=== PATIENT | male | born 1970 | race Caucasian/White ===

== ENCOUNTER 2018-05-30 10:31 | Outpatient (CLI) | payer BC, SELFPAY ==
--- NOTE | 2018-05-30 10:11 | DI.RAD_ITS ---
SYMPTOMS/DIAGNOSIS: DORSALGIA, M54.9 LUMBAR SPINE: The vertebral bodies are intact. There is no evidence of gross disc space narrowing. Moderate endplate degenerative changes and spurring are noted at L 2 - 3 and L 3 - 4. The pedicles, spinous and transverse processes are intact. There are mild facet joint degenerative changes and no evidence of spondylolysis or spondylolisthesis. The sacrum and sacroiliac joints are intact. SUMMARY: Degenerative changes involving the lumbar spine as described above.
[2018-05-30 11:13] LABS: Abs Immature Grans 0.01 k/cumm (0.0-0.09); Absolute Basophil Count 0.04 k/cumm (0.0-0.2); Absolute Eosinophil Count 0.09 k/cumm (0.0-0.7); Absolute Lymphocyte Count 1.94 k/cumm (1.2-3.4); Absolute Monocyte Count 0.51 k/cumm (0.11-0.7); Absolute Neutrophil Count 4.54 k/cumm (1.2-6.7); Basophils % 0.6; Eosinophils % 1.3; HCT 42.6 % (40.0-50.0); HGB 14.8 g/dL (13.5-17.5); Immature Grans % 0.1; Lymphocytes % 27.2; Mean Corp. HGB Concentration 34.7 g/dL (32.0-36.0); Mean Corpuscular Hemoglobin 28.7 pg (27.0-33.0); Mean Corpuscular Volume 82.6 fL (80-95); Mean Platelet Volume 9.5 fL (8.0-11.0); Monocytes % 7.2; Neutrophils % 63.6; Platelet Count 288 x1000/uL (130-400); RBC 5.16 m/cumm (4.50-6.00); RBC Distribution Width 13.2 % (11.8-14.1); White Blood Cell Count 7.13 k/cumm (4.4-10.8)
[2018-05-30 12:55] LABS: ALT 41 U/L (12-78); AST 19 U/L (15-37); Alkaline Phosphatase 79 U/L (46-116); Anion Gap 9.6 mmol/L (3-11); BUN 12 mg/dL (7-18); Bilirubin, Total 0.5 mg/dL (0.2-1.0); CO2 26.4 mmol/L (21.0-32.0); Calcium 9.2 mg/dL (8.5-10.1); Chloride 103 mmol/L (98-107); Glucose 117 mg/dL (70-100); Potassium 4.3 mmol/L (3.5-5.1); Sodium 139 mmol/L (136-145); TSH (W/Ref FT4) 1.43 uIU/mL (0.358-3.74); Total Protein 7.2 g/dL (6.4-8.2)
== END 2018-05-30 10:51 ==
PROVIDERS: PCP Internal Medicine; Visit Provider Internal Medicine
DX: M54.5 Low back pain (principal); M47.816 Spondylosis without myelopathy or radiculopathy, lumbar region
CPT/HCPCS: 36415; 80053; 72110; 84443; 85025

== ENCOUNTER 2018-12-17 09:41 | Outpatient (CLI) | payer BC, SELFPAY | END 2018-12-17 10:01 | PROVIDERS: PCP Internal Medicine; Visit Provider Internal Medicine | DX: R73.09 Other abnormal glucose (principal) | CPT/HCPCS: 36415; 83036 ==

== ENCOUNTER 2020-10-30 02:38 | Outpatient (CLI) | payer BC, SELFPAY ==
[2020-10-31 14:21] LABS: COVID-19 RT-PCR UVMMC Result Negative (Negative)
== END 2020-10-30 02:39 | disposition home or self-care (01) ==
LOC: LBO 02:38
PROVIDERS: PCP Nurse Practitioner; Visit Provider Nurse Practitioner
DX: Z20.822 Contact with and (suspected) exposure to COVID-19 (principal)
CPT/HCPCS: U0003

== ENCOUNTER 2021-09-22 01:51 | Outpatient (CLI) | payer BC, SELFPAY ==
[2021-09-22 16:39] LABS: HCT 46.7 % (40.0-50.0); HGB 15.3 g/dL (13.5-17.5); MCH 27.9 pg (27.0-33.0); MCHC 32.8 % (32.0-36.0); MCV 85.1 fL (80-95); MPV 9.1 fL (8.0-11.0); Platelet Count 324 10^3/uL (130-400); RBC 5.49 10^6/uL (4.36-5.78); RDW 12.8 % (11.8-14.1); RDW-SD 39.8 fL
[2021-09-22 17:00] LABS: Hemoglobin A1C 7.1 % (<5.7)
[2021-09-22 17:58] LABS: ALT 63 U/L (16-63); AST 27 U/L (15-37); Albumin 4.4 g/dL (3.4-5.0); Alkaline Phosphatase 84 U/L (46-116); Anion Gap 11.7 mmol/L (3-11); BUN 11 mg/dL (7-18); Bilirubin, Total 0.6 mg/dL (0.2-1.0); CO2 26.3 mmol/L (21.0-32.0); CREATININE 0.9 mg/dL (0.70-1.30); Calcium 9.6 mg/dL (8.5-10.1); Calculated LDL 202 mg/dL (<100); Chloride 100 mmol/L (98-107); Cholesterol 272 mg/dL (<200); Glucose 135 mg/dL (74-106); HDL Cholesterol 39 mg/dL (40-60); Potassium 4.2 mmol/L (3.5-5.1); Sodium 138 mmol/L (136-145); TSH 1.45 uIU/mL (0.36-3.74); Total Protein 7.7 g/dL (6.4-8.2); Triglyceride 157 mg/dL (<150); Vitamin B12 541 pg/mL (193-986)
== END 2021-09-22 01:52 | disposition home or self-care (01) ==
LOC: LBO 01:51
PROVIDERS: PCP Nurse Practitioner; Visit Provider Nurse Practitioner
DX: E78.5 Hyperlipidemia, unspecified (principal); R73.03 Prediabetes; F41.8 Other specified anxiety disorders; R41.3 Other amnesia
CPT/HCPCS: 36415; 80053; 80061; 85027; 82607; 83036; 84443

== ENCOUNTER 2022-01-14 01:10 | Outpatient (CLI) | payer BC, SELFPAY ==
[2022-01-14 13:10] LABS: Hemoglobin A1C 6.6 % (<5.7)
[2022-01-14 13:27] LABS: Calculated LDL 210 mg/dL (<100); Cholesterol 283 mg/dL (<200); HDL Cholesterol 38 mg/dL (40-60); Triglyceride 175 mg/dL (<150)
== END 2022-01-14 01:11 | disposition home or self-care (01) ==
LOC: LOS 01:10
PROVIDERS: PCP Nurse Practitioner; Visit Provider Nurse Practitioner
DX: E78.5 Hyperlipidemia, unspecified (principal); E11.9 Type 2 diabetes mellitus without complications
CPT/HCPCS: 36415; 80061; 83036

== ENCOUNTER 2022-08-22 03:20 | Outpatient (CLI) | payer BC, SELFPAY ==
[2022-08-22 14:04] LABS: Calculated LDL 228 mg/dL (<100); Cholesterol 329 mg/dL (<200); HDL Cholesterol 42 mg/dL (40-60); Triglyceride 298 mg/dL (<150)
== END 2022-08-22 03:21 | disposition home or self-care (01) ==
LOC: LOS 03:20
PROVIDERS: PCP Nurse Practitioner Family; Visit Provider Family Medicine
DX: E78.5 Hyperlipidemia, unspecified (principal)
CPT/HCPCS: 36415; 80061

== ENCOUNTER 2023-01-02 17:22 | Outpatient (REF) | payer BC, SELFPAY ==
[2023-01-03 11:45] LABS: Hemoglobin A1C 6.4 % (<5.7)
== END 2023-01-02 17:23 | disposition home or self-care (01) ==
LOC: LBN 17:22
PROVIDERS: PCP Nurse Practitioner Family; Visit Provider Nurse Practitioner Family
DX: E11.9 Type 2 diabetes mellitus without complications (principal); I10 Essential (primary) hypertension; E78.5 Hyperlipidemia, unspecified
CPT/HCPCS: 83036

== ENCOUNTER 2023-09-22 17:37 | Outpatient (CLI) | payer BC, SELFPAY ==
[2023-09-22 15:22] LABS: HCT 44.5 % (40.0-50.0); HGB 15.2 g/dL (13.5-17.5); MCH 28.4 pg (27.0-33.0); MCHC 34.2 % (32.0-36.0); MCV 83 fL (80-95); MPV 8.8 fL (8.0-11.0); Platelet Count 311 10^3/uL (130-400); RBC 5.36 10^6/uL (4.36-5.78); RDW 12.7 % (11.8-14.1); RDW-SD 38.4 fL; WBC 8.98 10^3/uL (4.4-10.8)
[2023-09-22 16:34] LABS: ALT 94 U/L (16-63); AST 37 U/L (15-37); Albumin 4.1 g/dL (3.4-5.0); Alkaline Phosphatase 96 U/L (46-116); Anion Gap 8.8 mmol/L (3-11); BUN 24 mg/dL (7-18); Bilirubin, Total 0.4 mg/dL (0.2-1.0); CO2 28.2 mmol/L (21.0-32.0); Calcium 9.7 mg/dL (8.5-10.1); Chloride 99 mmol/L (98-107); Cholesterol 336 mg/dL (<200); Estimated GFR 89.44 (mL/min/1.73m2); Glucose 201 mg/dL (74-106); HDL Cholesterol 34 mg/dL (40-60); Potassium 3.9 mmol/L (3.5-5.1); Sodium 136 mmol/L (136-145); Total Protein 8.1 g/dL (6.4-8.2); Triglyceride 619 mg/dL (<150)
[2023-09-22 16:47] LABS: Hemoglobin A1C 6.2 % (<5.7)
[2023-09-22 16:51] LABS: LDL CHOLESTEROL 205 mg/dL (<100)
== END 2023-09-22 17:38 | disposition home or self-care (01) ==
LOC: LBO 17:37
PROVIDERS: PCP Nurse Practitioner Family; Visit Provider Nurse Practitioner Family
DX: Z00.00 Encounter for general adult medical examination without abnormal findings (principal); E78.5 Hyperlipidemia, unspecified; I10 Essential (primary) hypertension; E11.9 Type 2 diabetes mellitus without complications; F41.9 Anxiety disorder, unspecified
CPT/HCPCS: 36415; 80053; 80061; 83721; 85027; 83036

== ENCOUNTER → 2023-10-10 01:30 | Outpatient (CLI) | payer BC, SELFPAY ==
--- NOTE | 2023-10-10 05:00 | ETT_ITS ---
APPROVED REPORT Exam: Exercise Treadmill Patient Location: Out-Patient Room/Bed: Stress Nurse: Hang Guzmán RN Ordering Provider:KAIA ALBERTS, Contact Number: [phone] BMI: 0.22 Baseline Rhythm: Sinus Rhythm Indications: Chest pain, Medical History Medical History: Anxiety, , HTN, Hyperlipidemia, Diabetic ??? Noninsulin Allergies: No known drug allergies Cardiac Risk Factors: HTN, Diabetes (non-insulin) Pretest Chest Pain Characteristics: No chest pain Exercise History: Physically active Lung Sounds: Clear to auscultation Heart Sounds: Regular Stress Test Details Test: Exercise stress testing was performed using a Fitz protocol. Rest Stress HR Resting HR Supine: 68 bpm Max Heart Rate (APMHR): 166 bpm Resting HR Standin bpm Target HR (85% APMHR): 141 bpm Max HR Achieved: 171 bpm % of APMHR: 103 Recovery HR: 83 bpm HR response to stress: Normal HR response to stress BP Resting BP Supine: 118/72 mmHg Resting BP Standin/72 mmHg Max BP: 178/68 mmHg Recovery BP: 128/84 mmHg BP response to stress: Normal blood pressure response to stress. ECG Resting ECG: Sinus Rhythm Ectopy: none Stress ECG: Sinus Tachycardia ST Change: No significant ST segment changes noted Arrhythmia: VPC's, APC's Comment: Rare PVC, occasional PAC. Recovery ECG: Sinus Rhythm Recovery ST Change: No significant ST segment changes noted Recovery Arrhythmia: APC Comment: Rare PAC. Clinical Reason for Termination: Target HR Achieved Exercise duration: 7 min11 sec Highest Stage Reached: 3 Exercise capacity: 8.82 METs Angina Score: None Watson Treadmill Score: 6.6 Rate Pressure Product: [id number] Stress ECG Conclusion 1. Resting electrocardiogram was normal 2. Patient exercised on the Fitz protocol and completed a workload of 8.82 METS 3. Normal heart rate and blood pressure with exercise. The patient achieved greater than 100% of pre dicted heart rate for age 4. There was no electrocardiographic evidence of myocardial ischemia 5. There were no significant dysrhythmias Watson Treadmill Score is 6.6 which is Low risk. Stress Test Summary STAGE Time (mins) Speed (mph) Grade (%) HR BP SpO2 SYMPTOMS METS Supine 68 118/72 98 Standing 73 118/72 1 3 1.7 10 104 130/82 98 4.5 2 6 2.5 12 140 98 7 1 min recovery 158 138/82 98 3 min recovery 94 178/68 6 min recovery 83 128/74 97
== END ==
PROVIDERS: PCP Nurse Practitioner Family; Visit Provider Nurse Practitioner Family
DX: R07.9 Chest pain, unspecified (principal); E78.5 Hyperlipidemia, unspecified
CPT/HCPCS: 93017

== ENCOUNTER 2023-11-12 13:21 | Emergency (ER) | payer BC, SELFPAY ==
[2023-11-12 13:29] VITALS: BP 128/80; PULSE 59; RESP 14; TEMP 36.7; O2SAT 97
--- NOTE | 2023-11-12 14:15 | DI.RAD_ITS ---
Exam(s) XR KNEE LT 3V AP,LAT,ROMULO EXAM: XR KNEE LT 3V AP,LAT,ROMULO CLINICAL HISTORY: left knee pain. TECHNIQUE: 2D digital imaging was performed of the left knee. Three images were obtained. AP, late ral and PA tunnel views were obtained. COMPARISON: CR LEFT KNEE 4+ VIEWS from 11/19/2013 FINDINGS: BONES: No acute fracture is present. No bony destructive lesion is seen. Findings of a prior ACL rep air. There is a small enthesophyte at the anterior superior patella. JOINTS: The knee is normally aligned. There is a small joint effusion. No loose body. SOFT TISSUE: Normal. IMPRESSION: Small joint effusion. DATA REPOSITORY: RADIATION DOSE DELIVERED:
--- NOTE | 2023-11-12 15:41 | DI.VRAD_ITS ---
PROCEDURE INFORMATION: Exam: XR Left Knee Exam date and time: 11/12/2023 2:38 PM Age: 53 years old Clinical indication: Pain; Knee; Left; Prior surgery; Surgery date: 6+ months; Surgery type: Acl TECHNIQUE: Imaging protocol: Radiologic exam of the left knee. Views: 3 views. COMPARISON: No relevant prior studies available. FINDINGS: Bones/joints: No acute fracture or dislocation. Prior ACL repair. Small joint effusion. Soft tissues: Mild quadriceps enthesopathy. IMPRESSION: Small joint effusion with no acute osseous abnormality. Dictated and Authenticated by: Albert Rodriguez MD. Ordering:KESHIA Dixon MD
--- NOTE | 2023-11-12 15:56 | NUR.NOTE ---
Referral given to Care Managers to help Pt get an appointment with the [facility] sometime next week for Knee Effusion.
--- NOTE | 2023-11-12 16:04 | W.EDPROG ---
Medical Decision Making Quality:SDOH Health Related Social Needs: No Data to Display Discharge Plan Disposition Patient Disposition: Home Discharge Details Clinical Impression: Effusion of left knee Primary Care Provider: Digna Mortensen ED Provider: Destiny Cummings Home Meds and New Rx's Prescriptions: Continued fluoxetine 20 mg capsule 20 mg PO DAILY Qty: 30 0RF Rx Instructions: take 1 tab for two weeks, then one tab every other day for two weeks then stop losartan 50 mg tablet 50 mg PO DAILY Qty: 90 3RF sildenafil 50 mg tablet See Rx Instructions .ROUTE .COMPLEX Qty: 30 3RF Dose Instruction: TAKE 1 TABLET DAILY NEEDED FOR SEXUAL ACTIVITY. ADMINISTER 30 MINUTES TO 4 HOURS BEFORE ACTIVITY. Rx Instructions: TAKE 1 TABLET DAILY NEEDED FOR SEXUAL ACTIVITY. ADMINISTER 30 MINUTES TO 4 HOURS BEFORE ACTIVITY. Discharge Instructions Additional Instructions: diclofenac gel tylenol as needed for pain keep splint in place crutches as needed follow-up with [facility] tomorrow return earlier with fever, redness, or with any new or worsening
--- NOTE | 2023-11-13 17:39 | ED.GENADUL_ITS ---
Discharge Plan Disposition Patient Disposition: Home Discharge Details Clinical Impression: Effusion of left knee Primary Care Provider: Dgina Mortensen ED Provider: Destiny Cummings Home Meds and New Rx's Prescriptions: Continued fluoxetine 20 mg capsule 20 mg PO DAILY Qty: 30 0RF Rx Instructions: take 1 tab for two weeks, then one tab every other day for two weeks then stop losartan 50 mg tablet 50 mg PO DAILY Qty: 90 3RF sildenafil 50 mg tablet See Rx Instructions .ROUTE .COMPLEX Qty: 30 3RF Dose Instruction: TAKE 1 TABLET DAILY NEEDED FOR SEXUAL ACTIVITY. ADMINISTER 30 MINUTES TO 4 HOURS BEFORE ACTIVITY. Rx Instructions: TAKE 1 TABLET DAILY NEEDED FOR SEXUAL ACTIVITY. ADMINISTER 30 MINUTES TO 4 HOURS BEFORE ACTIVITY. Discharge Instructions Additional Instructions: diclofenac gel tylenol as needed for pain keep splint in place crutches as needed follow-up with [facility] tomorrow return earlier with fever, redness, or with any new or worsening Discharge Data Discharge Date/Time-TO BE ENTERED AT DEPARTURE: 11/12/23 16:26 HPI General Date/Time Provider Initiated Documentation: 11/12/23 14:07 . HPI Narrative: This 53-year-old male presents with left knee pain for the past week. Denies any known injuries, prior ACL repair 6 years ago at [facility] in [place]. Did some yard work yesterday and the pain got dramatically worse. Now has had persistent pain throughout the day. Denies any calf pain or swelling. Has some swelling to the anterior portion of his knee. States is worse with extension. Denies any additional complaints at this time. Related Data Home Medications Medication Instructions Recorded Confirmed losartan 50 mg tablet 50 mg PO DAILY #90 tabs 02/27/23 11/12/23 sildenafil 50 mg tablet See Rx Instructions .Route 07/10/23 11/12/23 .COMPLEX #30 tabs fluoxetine 20 mg capsule 20 mg PO DAILY #30 caps 09/25/23 11/12/23 Previous Rx's Medication Instructions Recorded losartan 50 mg tablet 50 mg PO DAILY #90 tabs 02/27/23 sildenafil 50 mg tablet See Rx Instructions .Route 07/10/23 .COMPLEX #30 tabs fluoxetine 20 mg capsule 20 mg PO DAILY #30 caps 09/25/23 Allergies Allergy/AdvReac Type Severity Reaction Status Date / Time No Known Allergies Allergy Unverified 11/12/23 13:35 General Stated Complaint: Orthopedic RAISSA: 4 Course Vital Signs Vital signs: Vital Signs Temperature 36.7 C 11/12/23 13:29 Pulse 59 L 11/12/23 13:29 Respiratory Rate 14 11/12/23 13:29 Blood Pressure 128/80 11/12/23 13:29 Pulse Oximetry 97 11/12/23 13:29 Temperature 36.7 C 11/12/23 13:29 Temperature Source Skin 11/12/23 13:29 Pulse 59 L 11/12/23 13:29 Respiratory Rate 14 11/12/23 13:29 Respiratory Effort Normal 11/12/23 13:48 Blood Pressure 128/80 11/12/23 13:29 Blood Pressure Position Supine 11/12/23 13:29 Pulse Oximetry 97 11/12/23 13:29 Oxygen Delivery Method Room Air 11/12/23 13:29 Oxygen Flow Rate 0 11/12/23 13:29 Pain Level 4 11/12/23 13:48 Comment denies home tx or otc medications 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 Return precautions reviewed and patient expressed understanding, referred back to [facility] in [place] Quality:SDOH Health Related Social Needs: No Data to Display PFSH All Active Problems (Updated 11/12/23 @ 15:52 by AMBER Alegre) Effusion of left knee (Acute) Skin abnormalities (Acute) Hyperlipidemia (Acute) Hypnic jerks (Acute) Mild cognitive impairment (Acute) 01/02- seen by neuro; no focal deficits, believed to be r/t stress Hypertension (Chronic) Diabetes (Chronic) Erectile dysfunction (Acute) Anxiety (Chronic) Memory change (Acute) Medical History (Updated 11/12/23 @ 15:52 by AMBER Alegre) Premature beats PAC's per holter 08/20 Family History Mother , age 67 Crohn's disease Father , age 67 Heart disease Multiple myeloma Sister No problems noted. Sister No problems noted. Sister No problems noted. Brother No problems noted. Brother No problems noted. Son No problems noted. Daughter No problems noted. Daughter No problems noted. Maternal Grandfather No problems noted. Paternal Grandfather No problems noted. Maternal Grandmother No problems noted. Paternal Grandmother No problems noted. Social History (Updated 09/26/22 @ 17:27 by Julianna Greene) Smoking/Tobacco Use Status: Former Tobacco Use tobacco type: cigarettes and smokeless tobacco Tobacco: How many years used: 20 Smokeless tobacco user: chewing tobacco Second Hand Exposure: Yes Smoking risk assessment performed?: Yes Alcohol Intake: former Drug use: Current Sobriety Substance use type: does not use Caregiver/Support person: No Household members: spouse Housing: house Communication Needs: None Do you need help understanding health information?: Never Pets and animals: Yes Pets and animals: cat(s) and dog(s) Sexually active: Yes Do you think of yourself as: straight/heterosexual Current gender identity: male What is your relationship status?: How often do you talk on the phone with friends or family?: three or more times per week How often do you get together with friends or relatives?: three or more times per week How often do you attend buddhism or hoahaoism services?: 4 or more times per year Do you belong to any clubs or organized social groups?: no Panel score (0-1 are the most socially isolated patients): 3 What type of physical activity do you participate in: regular exercise Duration: 45-60 minutes/day Frequency: 5-6 times per week Kathy/Yarsani: Other Special kathy needs: No Seatbelt use: always Helmet use: Yes Helmet use: always 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
== END 2023-11-12 16:26 | disposition home or self-care (01) ==
PROVIDERS: Emergency Provider Physician Assistant; PCP Nurse Practitioner Family
DX: M25.462 Effusion, left knee (principal)
CPT/HCPCS: 73562; 99283

== ENCOUNTER 2024-01-29 06:52 | Day surgery (SDC) | payer BC, SELFPAY ==
--- NOTE | 2024-01-29 07:03 | ANES.PREOP_ITS ---
General Info Date of Service Date Performed: 01/29/24 Height: 5 ft 10 in Weight: 102 kg Body Mass Index (BMI): 32.2 Surgical Procedure: Operation Date: 01/29/24 08:05 Proposed Procedure Side Surgeon p Jack Linton MD Meds Allergies and Home Medications Allergies Allergy/AdvReac Type Severity Reaction Status Date / Time No Known Allergies Allergy Verified 01/29/24 07:17 Home Medication Medication Instructions Recorded losartan 50 mg tablet 50 mg PO DAILY #90 tabs 02/27/23 bisacodyl 5 mg tablet,delayed 5 mg PO ONCE #4 tabs 01/11/24 release (Dulcolax (bisacodyl)) polyethylene glycol 3350 17 17 g PO ONCE #238 grams 01/11/24 gram/dose oral powder Current Visit Medications: Current Medications Generic Name Dose Route Start Last Admin Trade Name Freq PRN Reason Stop Dose Admin Ringer's Solution 1,000 mls @ 80 mls/hr 01/29/24 06:00 IV 02/25/24 23:59 INFUSION BLAKE IV Miscellaneous Supplies 1 each 01/29/24 06:00 Iv Access IV 02/25/24 23:59 DIRECTED BLAKE Sodium Chloride 0 ml 01/29/24 06:00 Normal Saline Flush 10 Ml Syr IV 02/25/24 23:59 PRN PRN Sodium Chloride 0 ml 01/29/24 06:00 Normal Saline 10 Ml Vial IJ 02/25/24 23:59 DIRECTED PRN Sterile Water 0 ml 01/29/24 06:00 Water,Injection,Sterile 10 Ml Vial IJ 02/25/24 23:59 DIRECTED PRN PFSH Active Problems Active Problems: Problem Status Onset Code Skin abnormalities L98.9 Hyperlipidemia E78.5 Hypnic jerks F51.8 Mild cognitive impairment G31.84 Hypertension I10 Diabetes E11.9 Erectile dysfunction N52.9 Anxiety F41.9 Memory change R41.3 Medical History Medical History Premature beats PAC's per holter 08/20 Surgical History Surgical History History of repair of ACL L arm Hx of colonoscopy Tobacco Smoking/Tobacco Use Status: Former Tobacco Use Smokeless tobacco user: chewing tobacco Passive smoking exposure: No Second hand exposure: Yes Alcohol Alcohol Intake: former Substance Use Substance use: Current Sobriety Substance use type: does not use Vital Signs and Lab Results Vital Signs Most Recent Vital Signs in EMR: Temp Pulse Resp BP Pulse Ox 36.5 C 69 18 138/88 97 01/29/24 07:20 01/29/24 07:20 01/29/24 07:20 01/29/24 07:20 01/29/24 07:20 Lab Results Blood Type / Crossmatch: No Data to Display Complete Blood Count: No Data to Display Complete Metabolic Panel: No Data to Display Liver Function Panel: No Data to Display Coagulation Panel: No Data to Display Cardiac Panel: No Data to Display Arterial Blood Gas: No Data to Display Venous Blood Gas: No Data to Display Pancreas Panel: No Data to Display Thyroid Panel: No Data to Display Infectious Disease: No Data to Display Blood Cultures: No Data to Display Toxicology Panel: 2 No Data to Display Imaging and Studies Imaging and Studies Study information below may be from another EMR and interpreted by another provider. Please see original notes in EMR for more complete details. Stress Test Summary: STRESS TEST PATIENT NAME: Tahir Quiñonez UNIT #: [id number] ORDERING PROVIDER: Digna Alberts NP PRIMARY CARE PROVIDER: DIGNA ALBERTS NP DATE/TIME OF SERVICE: 10/10/23 ADMITTING PROVIDER: TIMOTHY GODOY MD : 1970 APPROVED REPORT Exam: Exercise Treadmill Patient Location: Out-Patient Room/Bed: Stress Nurse: Hang Guzmán RN Ordering Provider:DIGNA ALBERTS, Contact Number: [phone] BMI: 0.22 Baseline Rhythm: Sinus Rhythm Indications: Chest pain, Medical History Medical History: Anxiety, , HTN, Hyperlipidemia, Diabetic ??? Noninsulin Allergies: No known drug allergies Cardiac Risk Factors: HTN, Diabetes (non-insulin) Pretest Chest Pain Characteristics: No chest pain Exercise History: Physically active Lung Sounds: Clear to auscultation Heart Sounds: Regular Stress Test Details Test: Exercise stress testing was performed using a Fitz protocol. Rest Stress HR Resting HR Supine: 68 bpmMax Heart Rate (APMHR): 166 bpm Resting HR Standin bpmTarget HR (85% APMHR): 141 bpm Max HR Achieved: 171 bpm % of APMHR: 103 Recovery HR: 83 bpm HR response to stress: Normal HR response to stress BP Resting BP Supine: 118/72 mmHg Resting BP Standin/72 mmHg Max BP: 178/68 mmHg Recovery BP: 128/84 mmHg BP response to stress: Normal blood pressure response to stress. ECG Resting ECG: Sinus Rhythm Ectopy: none Stress ECG: Sinus Tachycardia ST Change: No significant ST segment changes noted Arrhythmia: VPC's, APC's Comment: Rare PVC, occasional PAC. Recovery ECG: Sinus Rhythm Recovery ST Change: No significant ST segment changes noted Recovery Arrhythmia: APC Comment: Rare PAC. Clinical Reason for Termination: Target HR Achieved Exercise duration: 7 min11 sec Highest Stage Reached: 3 Exercise capacity: 8.82 METs Angina Score: None Watson Treadmill Score: 6.6 Rate Pressure Product: [id number] Stress ECG Conclusion 1. Resting electrocardiogram was normal 2. Patient exercised on the Fitz protocol and completed a workload of 8.82 METS 3. Normal heart rate and blood pressure with exercise. The patient achieved greater than 100% of predicted heart rate for age 4. There was no electrocardiographic evidence of myocardial ischemia 5. There were no significant dysrhythmias Watson Treadmill Score is 6.6 which is Low risk. Stress Test Summary STAGETime (mins)Speed (mph)Grade (%)[id number] Dnzssxwd45989/72 [id number]/[id number] 1 min [id number] 3 min [id number]/68 6 min [id number] Dictated by: TIMOTHY GODOY MD Dictated:: 10/10/23 0854 <Electronically signed by Timothy Godoy M.D. in OV> 10/10/23 0859 Transcribed Date: 10/10/23 Transcribed Time: 08 By: CINDI This is privileged, confidential information, intended only for the provider named. Any use or distribution by any person other than this provider is strictly prohibited. If you receive this report in error, please notify us immediately at [phone] and return the original report to us at the address above. Thank you. Echocardiogram Summary: Patient Name: Tahir Quiñonez Unit #: [id number] Loc: DI Ordering Provider: Digna Alberts SECURITY INVESTIGATOR Status: REG CLI Primary Care Provider: Digna Alberts NP Date of Exam: 10/19/23 Sex: M Admission Date: 10/19/23 : 1970 Age: 53 APPROVED REPORT EXAM: Comprehensive 2D, Doppler, and color-flow Echocardiogram Patient Location: Out-Patient [employer] Supervisor: Tong Snyder RDCS (AE) Conclusion Normal left ventricular wall thickness and chamber size. Ejection fraction is 60-65% Wall motion is normal Normal right ventricular size and function Both atria are normal in size There is no structural or hemodynamically significant valvular disease Estimated right ventricular systolic pressure is 35 mmHg Wall motion Left Ventricle The left ventricle is normal size. The left ventricular systolic function is normal. The left ventricular ejection fraction is within the normal range. There is normal left ventricular wall thickness. There is normal LV segmental wall motion. There is no ventricular septal defect visualized. LVEF is 60-65%. Right Ventricle The right ventricle is normal size. The right ventricular systolic function is normal. Atria The left atrium size is normal. The right atrium size is normal. The interatrial septum is intact with no evidence for an atrial septal defect. Aortic Valve The aortic valve is normal in structure. Aortic valve is trileaflet. There is no aortic valvular stenosis. No aortic regurgitation is present. Mitral Valve The mitral valve is normal in structure. No evidence of mitral valve stenosis. Trivial mitral valve regurgitation noted. Tricuspid Valve The tricuspid valve is normal in structure. There is no tricuspid valve stenosis. Mild tricuspid regurgitation. The RVSP is 35.0 mmHg. Pulmonic Valve The pulmonary valve is normal in structure. There is no pulmonic valvular stenosis. Mild pulmonic regurgitation. Great Vessels The aortic root is normal in size. The ascending aorta is normal in size. Aortic arch is not well visualized. IVC is normal in size and collapses >50% with inspiration. Pericardium There is no pericardial effusion. 2D Dimensions IVSD d PLAX 0.52 cm M: 0.6-1.2Ao Root d 2.79 cm M: 3.1 - 3.7 LVPW d PLAX 0.53 cm M: 0.6 - 1.2Ao Asc Diam d 2.98 cm M: 2.6 - 3.4 LVID d PLAX 5.62 cm M: 4.2 - 5.8 LVDs 3.63 cm M: 2.5 - 4.0 LV EF Teichholz 64.1 % FS35.39 % LV EDV (Teich)155.2 mL LV ESV (Teich)55.7 mL Stroke Vol Index (Teich)45.67 M-Mode TAPSE 2.40 cm (M/F) >1.7 Auto EF LV EDV L4U704.9 mLLV EDV Y0B181.1 mLLV EDV BP122.0 mL LV ESV A4C53.2 mLLV ESV A2C41.2 mLLV ESV BP46.6 mL LVEF(%) A4C59.6 %LVEF(%) A2C63.3 %LVEF(%) BP61.8 % LV SV A4C78.7 mlLV SV A2C70.9 mlLV SV BP75.4 ml LV CO A4C4.7 L/minLV CO A2C4.2 L/minLV CO BP4.4 L/min HR A4C59.41 BPMHR A2C58.90 BPMLV EDV Index (BP) LA Volume LA Length A4C4.6 cmLA Length A2C4.7 cm LA Area A4C s 10.90 cm2LA Area A2C s 14.18 cm2 LA Vol A4C A-L22.12 mLLA Vol A2C A-L36.57 mLLA Vol Biplane A-L28.8 mL LA Vol/BSA A4C A-LLA Vol/BSA A2C A-LLA Vol/BSA BP A-L 13.2 mL/m2 LA Vol A4C MOD19.9 mLLA Vol A2C MOD34.7 mLLA Vol BP MOD26.4 mL RA Volume RA Area A4C6.5 cm2RA ESV A4C (A-L)10.3mLRA Vol/BSA A4C A-L RA Length A4C3.5 cmRA ESV A4C (MOD)10.5mL LV Diastology MV E' medial0.110 (>0.07 m/s)MV E Vmax 0.77 (0.4-1.3 m/s) MV E/E' MED6.98 (<14)MV A Vmax 0.55 (0.4-1.3 m/s) MV E' lateral0.092 (>0.1 m/s)E/A Ratio 1.4 MV E/E' LAT8.33 (<14) MV E' Average0.101 m/s MV E/E'(average)7.60 Aortic Valve AoV Vmax1.06 m/sLVOT Vmax 1.08 m/s AoV Peak Grad4.5 mmHgLVOT Peak Grad 4.7 mmHg AoV Area (Vmax)3.45 ps8AUGZ VTI0.218 m AoV VTI0.246 mLVOT Mean Grad 2.3 mmHg AoV Mean Jeremy.0.78 m/sLVOT SV 73.57 mL AoV Mean Grad2.7 mmHgLVOT Diam s 2.05 cm AoV Area (VTI)2.99 cm2 Velocity Ratio 1.02 Mitral Valve MV DT 135 (160-240 msec) Pulmonary Valve PV Vmax 0.74 (0.5-1.5 m/s)RVOT Vmax 0.49 m/s PV Peak Grad 2.2 mmHgRVOT Peak Gr.1.0 mmHg PV Mean Vel0.55 m/sRVOT VTI0.125 m PV Mean Grad 1.4 mmHgRVOT Mean Gr.0.5 mmHg Tricuspid Valve RA Pressure 3.00 mmHgTR Vmax 2.83 m/s TR Peak Grad 31.9 mmHg RVSP (TR) 35.0 mmHg Ordered By: Digna Alberts NP CC: Dictated By: Timothy Godoy M.D. 10/19/23 1013 <Electronically signed by Timothy Godoy M.D. in OV> 10/19/23 1026 Transcribed By: Timothy Godoy MD 10/19/23 1013 This is privileged, confidential information intended only for the provider named. Any use or distribution by any person other than this provider is strictly prohibited. If you receive this report in error, please notify us immediately at [phone] and return the original report to us at the address above. Thank-you. Anesthesia Assessment and Plan Anesthesia History Personal History: No History of Anesthesia Complications Family History: No Family History of Anesthesia Complications Exercise Tolerance Exercise Tolerance: Metabolic Equivalents>4 Pertinent Negatives Pertinent Negatives: No Symptoms of GERD, No Major Cardiovascular Symptoms or Complaints, No Major Pulmonary Symptoms or Complaints and No History of CVA/TIA Cardiac & Pulmonary Exam Cardiac Exam: Normal S1/S2 Heart Sounds Pulmonary Exam: Clear Bilateral Breath Sounds Implantable Cardiac Device Does patient have a Pacemaker or an ICD?: No Airway Exam Known Difficult Airway: No Mallampati Class: 2 Mouth Opening: Normal (> 3cm) Thyromental Distance: Greater than 3 cm Neck Range of Motion: Full ROM Neck Circumference: Normal Teeth Condition: Normal Dentition ASA Classification ASA Score: ASA 2 Emergency Case?: No NPO Status NPO Status: NPO Clears >2 hours, Solids >8 hours Anesthesia Plan Resuscitation Status: Full Code Anesthesia Technique: General Anesthesia Airway Planned: Natural Airway Monitors Used: Standard Monitors
[2024-01-29 07:20] VITALS: BP 138/88; PULSE 69; RESP 18; TEMP 36.5; O2SAT 97
[2024-01-29] MEDS: Lactated Ringers 1,000 ML 80 ML IV (07:25)
--- NOTE | 2024-01-29 08:02 | W.COLOREPORT ---
Date of service: 01/29/24 Time of Service: 08:02 Colonoscopy Report Procedure Description: PROCEDURES PERFORMED: 1. Colonoscopy with cold forceps polypectomy PREOPERATIVE DIAGNOSIS: Surveillance colonoscopy POSTOPERATIVE DIAGNOSIS: Colon polyp sigmoid diverticulosis, SURGEON: Harvinder Linton MD INDICATION FOR PROCEDURE: the patient is a 53-year-old man with no family history of colon cancer. Prior colonoscopy was normal 10+ years ago. He is not having any symptoms. FINDINGS: Terminal ileum was normal. A small 2-3 mm sessile polyp was removed from the transverse colon. Scattered diverticuli are present in the sigmoid colon. No active inflammation. No significant hemorrhoid disease. SURVEILLANCE interval/FOLLOW-UP: 7-10 years as long as the polyp is not an advanced histology SPECIMENS: Yes EBL: Minimal COMPLICATIONS: None QUALITY of prep: Excellent Procedure in detail: The patient gave written consent and was in agreement with the indications, the potential risks as well as the benefits of the procedure. They were taken to the endoscopy suite and laid in the left lateral decubitus position. A timeout was performed and anesthesia was administered which was tolerated well. I started the procedure. Digital rectal and visual examination was performed and grossly within normal limits. A well-lubricated flexible colonoscope was then introduced and passed without any notable difficulty all the way to the cecum identified by the ileocecal valve and the appendiceal orifice. The terminal ileum was intubated and looked normal. The scope was then slowly withdrawn with the above-noted findings. The patient tolerated the procedure well and was taken to the PACU in hemodynamically stable condition.
--- NOTE | 2024-01-29 08:04 | W.PM.DSUDISC ---
Date of service: 01/29/24 Time of Service: 08:04 Discharge Plan Disposition Patient Disposition: Home Condition: Good Discharge Details Attending Provider: Elliott Linton Primary Care Provider: Digna Mortensen Home Meds and New Rx's Prescriptions: No Action bisacodyl [Dulcolax (bisacodyl)] 5 mg tablet,delayed release (DR/EC) 5 mg PO ONCE Qty: 4 0RF Rx Instructions: Take per colonoscopy instructions provided by ordering providers office polyethylene glycol 3350 17 gram/dose powder 17 g PO ONCE Qty: 238 0RF Rx Instructions: Take per colonoscopy instructions provided by ordering providers office losartan 50 mg tablet 50 mg PO DAILY Qty: 90 3RF Discharge Instructions Additional Instructions: FINDINGS: A small polyp was found and removed from your colon today. It is nothing to worry about. This is why we do the colonoscopies. Diverticular changes were found in your colon. This is extremely common, benign and nothing needs to be done about it. You should repeat another colonoscopy in 7 to 10 years. Stand Alone Forms: Anesthesia Discharge InstJohn, Arthur Moise (DSU) Activity:: Activity as Tolerated Diet:: As Tolerated
[2024-01-29 08:18] VITALS: BMI 32.2
--- NOTE | 2024-01-29 08:29 | BOWEL_PTH ---
PATIENT: Tahir Quiñonez LOC: PATY U#:[id number] AGE/SX: 53/M ROOM: RE01/29/[address]: Elliott Linton : 1970 BED: DIS: 01/29/2024 SPEC #: [id number] RECD: 01/29/24 12:49 STATUS: SALLIE SAMUELS #: [id number] LUIS FERNANDO: 01/29/24 08:[address]: Elliott Linton DEPT: Surgical Specimen RECD BY: Destiny Dalal ENTERED: 01/29/24 12:49 SP TYPE: Bowel OTHR DR: Digna Mortensen, GONZALEZ Tissues: 1 - BIOPSY BOWEL Procedures: GROSS AND MICRO LEVEL 4 Comments: [id number]
[2024-01-29 08:37] VITALS: BP 116/70; PULSE 60; RESP 18; TEMP 35.9; O2SAT 97
[2024-01-29 09:12] VITALS: BP 126/79; PULSE 61; RESP 16; TEMP 36.2; O2SAT 98
--- NOTE | 2024-01-29 12:57 | W.ANESPOSTOP ---
Postoperative Evaluation Date, Time and Location Date Performed: 01/29/24 Time Performed: 08:39 Patient Location: Day Surgery Unit Vital Signs Most Recent Imported Vital Signs: Most Recent Vital Signs Temp Pulse Resp BP Pulse Ox 36.2 C L 61 16 126/79 98 01/29/24 09:12 01/29/24 09:12 01/29/24 09:12 01/29/24 09:12 01/29/24 09:12 Pain Score Most Recent Pain Score: Most Recent Pain Score Pain Level 0 01/29/24 09:12 Assessment Mental Status: Awake (Alert & Oriented to Patient Baseline) Airway and Respiratory Function: Patent airway with normal (patient baseline) respiratory exam Cardiovascular Function: Hemodynamically Stable Hydration Status: Adequately Hydrated Nausea & Vomiting: No Nausea or Vomiting Pain: Pt. Denies Any Pain Peripheral Nerve Block: Patient did not receive a nerve block
== END 2024-01-29 09:16 | disposition home or self-care (01) ==
PROVIDERS: PCP Nurse Practitioner Family; Visit Provider Student in an Organized Health Care Education/Training Program
PROC: 0DJD8ZZ Inspection of Lower Intestinal Tract, Via Natural or Artificial Opening Endoscopic (ICD-10-PCS; CPT 45378; principal; 2024-01-29 08:00)
DX: Z12.11 Encounter for screening for malignant neoplasm of colon (principal); I10 Essential (primary) hypertension; D12.3 Benign neoplasm of transverse colon; K57.30 Diverticulosis of large intestine without perforation or abscess without bleeding
CPT/HCPCS: 45380; 00123; 88305; J2704

== ENCOUNTER 2024-04-29 04:26 | Outpatient (CLI) | payer BC, SELFPAY ==
[2024-04-29 15:53] LABS: Anion Gap 12.4 mmol/L (3-11); BUN 19 mg/dL (7-18); CO2 25.6 mmol/L (21.0-32.0); Calcium 9.9 mg/dL (8.5-10.1); Chloride 98 mmol/L (98-107); Cholesterol 333 mg/dL (<200); Estimated GFR 89.44 (mL/min/1.73m2); Glucose 246 mg/dL (74-106); HDL Cholesterol 35 mg/dL (40-60); Sodium 136 mmol/L (136-145); Triglyceride 588 mg/dL (<150)
[2024-04-29 16:13] LABS: LDL CHOLESTEROL 196 mg/dL (<100)
[2024-04-29 16:20] LABS: Hemoglobin A1C 10.8 % (<5.7)
== END 2024-04-29 04:27 | disposition home or self-care (01) ==
LOC: LBO 04:26
PROVIDERS: PCP Nurse Practitioner Family; Visit Provider Nurse Practitioner Family
DX: E78.5 Hyperlipidemia, unspecified (principal); E11.9 Type 2 diabetes mellitus without complications; I10 Essential (primary) hypertension
CPT/HCPCS: 36415; 80048; 80061; 83721; 83036

== ENCOUNTER 2024-05-06 14:48 | Emergency (ER) | payer BC, SELFPAY ==
[2024-05-06 14:51] VITALS: BP 161/102; PULSE 84; RESP 16; TEMP 36.6; O2SAT 98
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
[2024-05-06 15:25] LABS: Abs Immature Grans 0.02 10^3/uL (0.0-0.06); Absolute Basophil Count 0.05 10^3/uL (0.0-0.2); Absolute Eosinophil Count 0.12 10^3/uL (0.0-0.7); Absolute Lymphocyte Count 2.02 10^3/uL (1.2-3.4); Absolute Monocyte Count 0.53 10^3/uL (0.1-0.8); Absolute Neutrophil Count 6.22 10^3/uL (1.2-6.7); Basophils % 0.6 %; Eosinophils % 1.3 %; HCT 43.7 % (40.0-50.0); HGB 14.8 g/dL (13.5-17.5); Immature Grans % 0.2 %; Lymphocytes % 22.5 %; MCHC 33.9 % (32.0-36.0); MCV 83 fL (80-95); MPV 9.4 fL (8.0-11.0); Monocytes % 5.9 %; Neutrophils % 69.5 %; Platelet Count 315 10^3/uL (130-400); RBC 5.28 10^6/uL (4.36-5.78); RDW 12.4 % (11.8-14.1); RDW-SD 37.4 fL; WBC 8.96 10^3/uL (4.4-10.8)
[2024-05-06] MEDS: ACETAMINOPHEN 1,000 MG/100 ML BTL 400 MG IVPB (15:26)
[2024-05-06] MEDS: Methocarbamol 500 MG TAB 1000 MG PO (15:26)
[2024-05-06 15:49] LABS: ALT 66 U/L (16-63); AST 34 U/L (15-37); Albumin 3.8 g/dL (3.4-5.0); Alkaline Phosphatase 135 U/L (46-116); Anion Gap 11.5 mmol/L (3-11); BUN 13 mg/dL (7-18); Bilirubin, Total 0.33 mg/dL (0.2-1.0); CO2 26.5 mmol/L (21.0-32.0); Calcium 9.1 mg/dL (8.5-10.1); Chloride 97 mmol/L (98-107); Estimated GFR 89.44 (mL/min/1.73m2); Glucose 297 mg/dL (74-106); Sodium 135 mmol/L (136-145); Total Protein 7.5 g/dL (6.4-8.2)
[2024-05-06] MEDS: Normal Saline - Diluent 50 ML VIAL IJ (16:08)
[2024-05-06] MEDS: Omnipaque 350 MG/ML 100 ML BTL 85 ML IJ (16:09)
--- NOTE | 2024-05-06 16:18 | DI.CT_ITS ---
Exam(s) CT ABDOMEN PELVIS W EXAM: CT ABDOMEN PELVIS W CLINICAL HISTORY: abd pain. TECHNIQUE: Imaging Protocol: Axial computed tomography images with coronal and sagittal reformatted images were created and reviewed CONTRAST MATERIAL: Intravenous: Omnipaque-350 100cc Oral: None COMPARISON: No exams were available for comparison FINDINGS: VISUALIZED LUNG BASES: No nodules nor pleural effusions evident. ABDOMEN: There is no ascites. LIVER: There are no focal hepatic lesions evident. No dilated intrahepatic ducts. GALLBLADDER/BILIARY: No obvious gallbladder pathology. CBD is not dilated. PANCREAS: No evidence of pancreatic mass nor dilatation of the pancreatic duct. SPLEEN: Spleen is not enlarged. No obvious intrasplenic lesions. Splenic and portal veins are paten t. ADRENALS: There are no significant adrenal masses. KIDNEYS:There is a small benign 7 millimeter cortical cyst in the inferior aspect of the right kidney . Does not require further workup. No solid renal lesions. No calculi. No hydronephrosis nor hydr oureter. No abnormalities evident in the urinary bladder.. ABDOMINAL AORTA: Abdominal aorta is not enlarged. LYMPH NODES:There is no retroperitoneal nor paraaortic adenopathy. ABDOMINAL WALL: No evidence of significant anterior abdominal wall nor inguinal hernia. GI: There is no evidence of bowel obstruction, free air, nor abscess. PELVIS: GI: No evidence of appendicitis.There are sigmoid diverticuli but no evidence of acute diverticulitis . LYMPH NODES: There is no intrapelvic nor inguinal adenopathy. REPRODUCTIVE: Prostate size is normal. Seminal vesicles appear unremarkable. URINARY BLADDER: No calculi nor obvious masses evident OSSEOUS: No fractures and no significant osseous lesions. IMPRESSION: No significant findings on this contrast infused CT scan of the abdomen and pelvis. Report called by myself to ER physician 05/06/2024 at 4:36 p.m. RADIATION DOSE DELIVERED: 540.63mGy.cm Total DLP DATA REPOSITORY: All CT scans at this facility are submitted to the National Radiology Data Registry (NRDR) Dose Index Registry (DIR) with the [employer] (ACR). RADIATION OPTIMIZATION: All CT scans at this facility use at least one of these dose optimization te chniques: automated exposure control; mA and/or kV adjustment per patient size (includes targeted exa ms where dose is matched to clinical indication); or iterative reconstruction.
[2024-05-06 16:36] VITALS: BP 125/78; PULSE 71; RESP 18; TEMP 36.3; O2SAT 99
== END 2024-05-06 16:48 | disposition home or self-care (01) ==
PROVIDERS: Emergency Provider Emergency Medicine; PCP Nurse Practitioner Family
DX: M54.9 Dorsalgia, unspecified (principal); R73.9 Hyperglycemia, unspecified; V28.09XA Other motorcycle driver injured in noncollision transport accident in nontraffic accident, initial encounter
CPT/HCPCS: 36415; 80053; 96365; 99285; 74177; 85025; 99284; J0131; J3490

== ENCOUNTER 2024-08-01 08:58 | Outpatient (CLI) | payer BC, SELFPAY ==
[2024-08-01 13:04] LABS: Hemoglobin A1C 8.4 % (<5.7)
== END 2024-08-01 08:59 | disposition home or self-care (01) ==
LOC: LOS 08:58
PROVIDERS: PCP Nurse Practitioner Family; Referring Provider Nurse Practitioner Family; Visit Provider Nurse Practitioner Family
DX: E11.9 Type 2 diabetes mellitus without complications (principal)
CPT/HCPCS: 36415; 83036

== ENCOUNTER 2024-08-18 10:20 | Emergency (ER) | payer BC, SELFPAY ==
--- NOTE | 2024-08-18 10:15 | RT.EKG_ITS ---
APPROVED REPORT Exam: Resting ECG Reason for Exam: shouler/neck/arm pain Patient Location: E HR:85 bpm ECG Measurements Heart Rate 85 AXIS ME 169 P 29 QRSd 90 QRS -1 QT 343 T 24 QTc 408 Conclusion Sinus rhythm...normal P axis, V-rate 60- 99 I have reviewed and interpreted ECG and agree with software generated interpretation.
[2024-08-18 10:25] VITALS: BP 146/80; PULSE 86; RESP 15; TEMP 36.5; O2SAT 97
--- NOTE | 2024-08-18 11:00 | DI.CT_ITS ---
Exam(s) CT THORAX CTA EXAM: CT THORAX CTA CLINICAL HISTORY: Pain in right neck and right shoulder, rule out di. TECHNIQUE: Imaging Protocol: CT angiography of the chest was performed using pulmonary embolus jaye col. Multi planar reconstructions were performed. CONTRAST MATERIAL: Intravenous: Omnipaque 350 Contrast volume: 100 cc COMPARISON: No exams were available for comparison FINDINGS: CHEST: THORACIC AORTA: The diameter of the ascending thoracic aorta is minimally prominent measuring 3.8 cm. There is no evidence of dissection nor pericardial effusion. Aortic arch and descending thoracic a christine appear unremarkable. PULMONARY ARTERIES: There are no intraluminal filling defects within the central pulmonary arteries. Intravenous contrast is predominately in the aorta and therefore evaluation for more peripheral pulm onary emboli is not possible. LUNGS: Mild increased subpleural markings are noted in the posterior basal segment left lower lobe bu t no confluent infiltrates nor pleural effusions. No ominous pulmonary nodules.. MEDIASTINUM: There is no hilar nor mediastinal adenopathy. CARDIAC: Heart size normal. No pericardial effusion.Caliber of the thoracic aorta is within normal l imits. No dissection. There is no significant shift of the interventricular septum. PARTIALLY VISUALIZED UPPERMOST ABDOMEN: No adrenal masses nor splenomegaly. Hepatic steatosis is not ed. No ascites OSSEOUS: No significant osseous lesions.. IMPRESSION: 1. The diameter of the ascending thoracic aorta is minimally prominent measuring 3.8 cm. However, th ere is no evidence of aortic dissection nor pericardial effusion. 2. There are no central pulmonary emboli evident. 3. No significant lung infiltrates nor pleural effusions nor ominous pulmonary nodules. There is no intrathoracic adenopathy. Hepatic steatosis is noted. RADIATION DOSE DELIVERED: 421.5mGy.cm Total DLP DATA REPOSITORY: All CT scans at this facility are submitted to the National Radiology Data Registry (NRDR) Dose Index Registry (DIR) with the [employer] (ACR). RADIATION OPTIMIZATION: All CT scans at this facility use at least one of these dose optimization te chniques: automated exposure control; mA and/or kV adjustment per patient size (includes targeted exa ms where dose is matched to clinical indication); or iterative reconstruction.
--- NOTE | 2024-08-18 11:00 | DI.CT_ITS ---
Exam(s) CT CAROTID NECK CTA EXAM: CT CAROTID NECK CTA CLINICAL HISTORY: Eval carotids and vertebral artery for dissection. TECHNIQUE: Imaging Protocol: Axial CT angiography was performed with multi-slice acquisition and mu lti-planar and/or 3D reconstructions. CONTRAST MATERIAL: Intravenous: Omnipaque 350 Contrast volume:70 mL COMPARISON: No exams were available for comparison FINDINGS: CTA NECK W: AORTIC ARCH ANATOMY: Aortic arch anatomy is conventional and there is no significant stenosis at the origin of the great vessels off the aortic arch. Anterior circulation: Both common carotid arteries ascend with normal luminal diameters. There is no significant plaque at the level the carotid bulbs and proximal internal carotid arteries nor within the internal carotid a rteries in the upper neck. Also no dissection of these vessels evident. Posterior circulation: Both vertebral arteries originated conventional fashion off of the subclavian arteries. There is no significant stenosis in the subclavian arteries proximal to the vertebral artery takeoff points. The re is no significant stenosis at the origin of the vertebral arteries off of the subclavian arteries. Both vertebral arteries ascend with normal and equal luminal diameters within the foramen transvers arium. No evidence of significant stenosis nor intraluminal thrombus. No dissection evident. At th e skull base both vertebral arteries contribute to the formation of the basilar artery.. Incidental: Mucosal thickening or post inflammatory retention cysts in both maxillary sinuses, not as sociated with fluid levels therein. IMPRESSION: 1. Patent carotid and vertebral arteries in the neck with no evidence of significant stenosis nor di ssection. RADIATION DOSE DELIVERED: 425.78mGy.cm Total DLP DATA REPOSITORY: All CT scans at this facility are submitted to the National Radiology Data Registry (NRDR) Dose Index Registry (DIR) with the [employer] (ACR). RADIATION OPTIMIZATION: All CT scans at this facility use at least one of these dose optimization te chniques: automated exposure control; mA and/or kV adjustment per patient size (includes targeted exa ms where dose is matched to clinical indication); or iterative reconstruction.
[2024-08-18 11:03] LABS: Abs Immature Grans 0.02 10^3/uL (0.0-0.06); Absolute Basophil Count 0.05 10^3/uL (0.0-0.2); Absolute Lymphocyte Count 1.84 10^3/uL (1.2-3.4); Absolute Monocyte Count 0.39 10^3/uL (0.1-0.8); Absolute Neutrophil Count 3.45 10^3/uL (1.2-6.7); Basophils % 0.9 %; Eosinophils % 1.7 %; HCT 44.1 % (40.0-50.0); HGB 15.2 g/dL (13.5-17.5); Immature Grans % 0.3 %; Lymphocytes % 31.5 %; MCH 28.3 pg (27.0-33.0); MCHC 34.5 % (32.0-36.0); MCV 82 fL (80-95); MPV 9.2 fL (8.0-11.0); Monocytes % 6.7 %; Neutrophils % 58.9 %; Platelet Count 288 10^3/uL (130-400); RBC 5.37 10^6/uL (4.36-5.78); RDW 12.3 % (11.8-14.1); RDW-SD 37.2 fL; WBC 5.85 10^3/uL (4.4-10.8)
--- OUTSIDE RECORDS SUMMARY | 2024-08-18 11:22 | XMS_ITS | Encounter Summary ---
Author Organization [facility] Address [address] [place] [address] Care Team Providers Care Executive Sales Manager Name Role Phone Joe Mccain MD Primary Care Provider [phone] Encounter Details Date Type Department Care Team (Late st Contact Info) Description 10/30/2020 Lab Requisition [facility] Pathology & Laboratory Medicine - [address] [address] Outr Resulting Lab, Provider Social History Tobacco Use Types Packs/Day Years Used Date Smoking Tobacco: Never Assessed Sex and Gender Information Value Date Recorded Sex Assigned at Not on file Legal Sex Male 15:44 EST Gender Identity Not on file Sexual Orientation Not on file documented as of this encounter Plan of Treatment Not on file documented as of this encounter Procedures Procedure Name Priority Date/Time Associated Diagnosis Comments ZZCOVID-19 TEST [facility] PCR Today 10/30/2020 8:36 EDT COVID-19 TESTING Routine 10/30/2020 8:36 EDT documented in this encounter Results * COVID-19 TEST [facility] PCR (10/30/2020 8:36 EDT) Swab ENTIRE NASOPHARYNX / Unknown 10/30/2020 8:36 EDT 10/30/2020 15:47 EDT us Provider Outr Resulting Lab MICROBIOLOGY - GENER AL ORDERABLES Final Result [facility] [address] [place] [address] * COVID-19 TESTING (10/30/2020 8:36 EDT) COVID-19 rt-PCR Result Negative Negative 10/31/2020 14:12 EDT [facility] Comment: This test has not been FDA cleared or approved. This test has been authorized by FDA under an EUA for use by authorized laboratories. This test has been authorized only for detection of nucleic acid from 2019-nCoV, not for any other viruses or pathogens. This test is only authorized for the duration of the declaration that circumstances exist justifying the authorization of emergency use of in vitro diagnostic tests for detection and/or diagnosis of 2019-nCoV under section 564(b)(1) of Act, 21 U.S.C ?? 360bbb-3(b) (1), unless the authorization is terminated or revoked sooner. Negative results do not preclude 2019-nCoV infection and should not be used as the sole basis for treatment or other patient management decisions. Negative results must be combined with clinical observations, patient history, and epidemiological information. This test was developed and its performance characteristics determined by [facility]. It has not been cleared or approved by the US Food and Drug Administration. FDA does not require this test to go through premarket FDA review. This test is used for clinical purposes. It should not be regarded as investigational or for research. This laboratory is certified under the Clinical Laboratory Improvement Amendments (CLIA) as qualified to perform high complexity clinical laboratory testing. This test is based on the [facility] COVID-19 Emergency Use Authorization (EUA) assay, with minor modification as defined by the FDA Performed on the IntYo 7 Flex RT-PCR System. Performing Lab [facility] 10/31/2020 14:12 EDT [facility] Swab 10/30/2020 8:36 EDT 10/30/2020 15:47 EDT us Provider Outr Resulting Lab MICROBIOLOGY - GENER AL ORDERABLES Final Result [facility] [address] [place] [address] documented in this encounter Visit Diagnoses Not on filedocumented in this encounter Care Teams Executive Sales Manager Relationship Specialty Start Date End Date Joe Mccain MD [address] [place] [id number] PCP - General 08/08/13 documented as of this encounter
--- OUTSIDE RECORDS SUMMARY | 2024-08-18 11:22 | XMS_ITS | Encounter Summary ---
Author Organization [facility] Address [address] [place] [address] Care Team Providers Care Office Technology Professor Name Role Phone Unknown, Provider Primary Care Provider Unava ilable Encounter Details Date Type Department Care Team (Late st Contact Info) Description 08/05/2013 Results Only [facility] Laboratory Services - [facility] ([facility] [address], [place] [id number] Tico Bustillos MD [address] [place] [id number] Social History Tobacco Use Types Packs/Day Years [...] Procedure Name Priority Date/Time Associated Diagnosis Comments SURGICAL PATHOLOGY Routine 08/05/2013 15 :59 EST documented in this encounter Results * SURGICAL PATHOLOGY (08/05/2013 15:59 EST) Pathology Report: SURGICAL PATHOLOGY REPORT Reports generated via electronic interface contain original data; however they are lacking the format of the original report. Caution should be taken when reading/interpreti ng unformatted reports. Name: ? FIDENCIO GARCIA ? Accession #: ? [id number] ? : ? 1970 (Age: 43) ??M ? Collect Date: ? 08/05/2013 ? Location: ? [facility] ? Receive Date: ? 08/05/2013 ? Provider: TICO BUSTILLOS MD Copy to: TANVIR RUSH MD ? Final Pathologic Diagnosis: A. SMALL BOWEL, TERMINAL ILEUM, BIOPSY: - ??Enteric mucosa with no significant diagnostic alteration. B. COLON AND RECTUM, RANDOM, BIOPSY: - ??Colorectal mucosa with no significant diagnostic alteration. Document reviewed and electronically signed by: NILAY NAPIER MD Report ??Date: 08/09/2013 14:22 By the signature above, the attending physician certifies that he/she has personally conducted a gross and/or microscopic examination of the described specimens and rendered or confirmed the above diagnosis. Specimen(s) Received: A. ?TI bxs B. ? Random bxs cecum to rectum Clinical History: Abd cramps Gross Description: A. ?Received in formalin labelled with proper patient identification (initials H, J) and TI biopsies are four pink-guthrie tissue fragments (0.4 x 0.3 x 0.2 cm to 0.6 x 0.3 x 0.2 cm). Entirely submitted in block A1-A2. B. ?Received in formalin labelled with proper patient identification (initials H, J) and random biopsies cecum to rectum are 14 light guthrie tissue fragments (0.2 x 0.2 x 0.2 cm to 1.8 x 0.2 x 0.1 cm). Entirely submitted in block B1-B5. Seble Dolan 08/08/2013 08:31 AM End of Report [facility] 08/05/2013 15:5 9 EST 08/05/2013 15:59 EST us Tico Bustillos MD PATHOLOGY ORDERABLES Final Result [facility] [address] [place] [address] documented in this encounter Visit Diagnoses Not on filedocumented in this encounter Care Teams Office Technology Professor Relationship Specialty Start Date End Date Unknown, Provider, PCP - General 08/05/13 08/07/13 documented as of this encounter
--- OUTSIDE RECORDS SUMMARY | 2024-08-18 11:22 | XMS_ITS | Encounter Summary ---
[place] [address] Care Team Providers Care Owner/Photographer Name Role Phone BalbinaDigna APRN Primary Care Provider [phone]- [phone] Encounter Details Date Type Department Care Team (Latest Contact Info) Description 12/13/2023 Travel Social History Tobacco Use Types Packs/Day Years Used Date Smoking Tobacco: Former Sex and Gender Information Value Date Recorded Sex Assigned at Not on file Gender Identity Not on file Sexual Orientation Not on file documented as of this encounter Plan of Treatment Not on file documented as of this encounter Visit Diagnoses Not on filedocumented in this encounter Care Teams Owner/Photographer Relationship Specialty Start Date End Date BalbinaDigna APRN PCP - General Internal Medicine 09/21/22 12/19/23 documented as of this encounter
--- OUTSIDE RECORDS SUMMARY | 2024-08-18 11:22 | XMS_ITS | Encounter Summary ---
[place] [address] Care Team Providers Care Senior Svp Name Role Phone Digna Mortensen APRN Primary Care Provider [phone]- [phone] Reason for Referral * Consultation (Routine) - Closed Specialty Diagnoses / Procedures Referred By Bibi t Referred To Contact Dermatology Diagnoses Skin abnormalities Digna Mortensen APRN [address] [place] [address] [facility] Dermatology [address] [place] [address] Referral ID Status Reason Start Date Expiration Date V isits Requested Visits Authorized [id number] Closed Consult, Test & Treat PCP Updated and/or Approved 09/21/2022 09/21/2023 6 6 Encounter Details Date Type Department Care Team (Late st Contact Info) Description 09/21/2022 Transcribe Orders eDH Incoming Referrals [phone] Digna Mortensen APRN [address] [place] [address] Skin abnormalities Social History Tobacco Use Types Packs/Day Years Used Date Smoking Tobacco: Former Sex and Gender Information Value Date Recorded Sex Assigned at Not on file Gender Identity Not on file Sexual Orientation Not on file documented as of this encounter Plan of Treatment Scheduled Referrals Name Type Priority Associated Diagnoses Orde r Schedule Referral to Dermatology Outpatient Referral Routine Skin abnormalities Ordered: 09/21/2022 documented as of this encounter Visit Diagnoses Diagnosis Skin abnormalities Unspecified congenital anomaly of the integument documented in this encounter Care Teams Senior Svp Relationship Specialty Start Date End Date Balbina, Digna Casas APRN PCP - General Internal Medicine 09/21/22 12/19/23 documented as of this encounter
--- OUTSIDE RECORDS SUMMARY | 2024-08-18 11:22 | XMS_ITS | Encounter Summary ---
Author Organization [facility] [place] [address] Care Team Providers Care Web Services Architect Name Role Phone Balbina, Digna Augusto ISBELL Primary Care Provider [phone]- [phone] Encounter Details Date Type Department Care Team (Late st Contact Info) Description 12/20/2023 4:00 PM EDT Office Visit Dermatology at [facility] [address] [place] [address] Jadiel Deluna MD [facility] [address] [place] [address] Neoplasm of unspecified behavior of bone, soft tissue, and skin; Inflamed skin tag; Inflamed seborrheic keratosis; Dermatofibroma Social History Tobacco Use Types Packs/Day Years Used Date Smoking Tobacco: Former Sex and Gender Information Value Date Recorded Sex Assigned at Not on file Gender Identity Not on file Sexual Orientation Not on file documented as of this encounter Progress Notes * Jadiel Deluna MD - 12/20/2023 4:00 PM EDT Images from the original note were not included. DEPARTMENT OF DERMATOLOGY [facility] D[facility]at[facility] Provider: Jadiel Deluna MD Patient's preferred name Tahir Preferred contact method for results [x]Phone []myD-H []Letter Detailed phone message OK? Yes Are there any other people with whom we may discuss your care? 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 Patient is new and self- referred to the clinic for multiple concerning nevi on the face. Medications: Reviewed in eD-H Allergies: Reviewed in eD-H Skin Examination: Focused skin examination of the abdomen, extremities and face was normal with the exception of the findings below. Assessment/Plan DDx. Nevus vs. Acrochordon - 7mm flesh skin colored papule on the right abdomen (Figure 1). - Recommended a skin biopsy to confirm/clarify the nature of the skin lesion. After discussion of potential risks (scarring, bleeding, infection) and recurrence, patient agreed to proceed. - Patient denies known allergies to lidocaine and epinephrine. Procedure: Skin shave biopsy Location: Right abdomen Time of procedure: 4:10 PM Discussed indications for procedure and expectations including risks and benefits. Verbal consent obtained. Time out performed. Skin prepped with alcohol. Local anesthesia with 1% xylocaine, 1/100,000 epinephrine. A sample of the lesion was removed by shave technique to the level of the dermis and s ubmitted to Pathology. Hemostasis obtained (AlCl). There were no complications; patient tolerated the procedure well. Wound dressed. Post-procedure expectations, wound care and activity restrictions reviewed. - Follow-up based on pathology results. #. Inflamed Skin Tag - Inflamed sessile, flesh-colored papule on the right eyelid x3. - Discussed benign nature of lesion(s) and provided reassurance. - Due to irritation present on today's exam and history of symptoms, discussed removal with snip removal. - Patient elects to proceed with snip removal today. Procedure Snip Removal Procedure Discussed with patient diagnostic options, including the risks and benefits including but not limited to recurrence, cosmesis (scar, dyspigmentation, scar), pain, bleeding, infection. Patient verbally understands elective procedure and associated risk. -Time Out Performed: Full Name, , and site(s) confirmed with patient -Site was prepped in sterile fashion with Alcohol. Lesion were removed using a curved iris. -Hemostasis achieved with Drysol with minimal blood loss. No complications. #. Inflamed Seborrheic Keratosis - Inflamed, stuck on, waxy papule on the abdomen. - Discussed benign nature of lesion(s) and provided reassurance. - Due to irritation present on today's exam and history of symptoms, discussed removal with cryotherapy. - Patient elects to proceed with cryotherapy today. Procedure: Destruction of lesion(s) with cryotherapy (LN2). Location(s): As noted above Number: 1 Discussed procedure and expectations including risks and benefits. Verbal consent obtained. Treatedwith LN2. There were no complications; Patient tolerated the procedure well. Post-procedure expectations and wound care were reviewed. #. Dermatofibromas - Multiple firm papules, centrally raised and sclerotic, with peripheral hyperpigmentation and dimpling with lateral pressure on the bilateral lower extremities. - Discussed that these are benign fibrous (scar-like) lesions. No treatment necessary. Figure 1 Photo(s) taken and charted with patient's verbal consent. Other: N/A RTC: Pending pathology []Note routed to unit secretary []Recall placed in scheduling system []Appointment scheduled at checkout Scribe attestation: Lloyd Huang has performed the documentation for this encounter in the presence of and acting as a scribe for Jadiel Deluna MD. I performed the above scribed service and agree with the accuracy of the documentation in this encounter. Reviewed and signed by: Jadiel Deluna MD Dermatology [facility] Patient seen and evaluated with staff sand cutter: Cristiana Glass MD Dermatology [facility] * Cristiana Glass MD - 12/20/2023 4:00 PM EDT I directly supervised Jadiel Deluna MD in the care of this Dermatology patient in person. I saw and evaluated this patient with Jadiel Deluna MD. Jadiel Deluna MD presented the history and physical exam details to me, then we saw the patient together, and I confirmed these findings. I agree with details as written. My physical examination confirms Jadiel Deluna MD's findings. The assessment and plan were formulated in discussion with me at the time of visit, and I agree with them as documented. CRISTIANA GLASS MD Staff Cane Pusher Department of Dermatology [facility] * Jadiel Deluna MD - 12/20/2023 4:00 PM EDT I sent Tahir a SiBEAM message reviewing results. Findings of a benign seborrheic keratosis. No furtherintervention required. Can continue follow-up PRN documented in this encounter Plan of Treatment Not on file documented as of this encounter Procedures Procedure Name Priority Date/Time Associated Diagnosis Comments SPECIMEN TO PATHOLOGY Routine 12/20/2023 5:06 PM EDT Neoplasm of unspecified behavior of bone, soft tissue, and skin SURGICAL PATHOLOGY REPORT Routine 12/20/2023 4:10 PM EDT documented in this encounter Results * Specimen to Pathology (12/20/2023 5:06 PM EDT) AP Specimen 12/20/2023 5:06 PM EDT 12/20/2023 5:06 PM EDT Narrative [facility] - 12/20/2023 5:06 PM EDT Specimen requisition ordered. ??Separate Pathology report to follow Cristiana Glass MD PATHOLOGY/CYTOLOGY O RDERABLES [facility] [place] [address] * Surgical Pathology Report (12/20/2023 4:10 PM EDT) Final Diagnosis [id number] ? Location: [facility] The signing pathologist has (i) examined the relevant preparation(s) for the specimen(s) and (ii) rendered or confirmed the diagnosis(es). . ?Surgical Pathology DIAGNOSIS Right abdomen, skin shave biopsy: - ??Seborrheic keratosis with lichenoid inflammation (see Discussion) Electronically signed by: ?Kayode CHRISTIAN, PhD, [facility] Verified: ??12/29/2023 19:41 ??Dermatopatholo gist Performed at: ??-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 seborrheic keratosis and lichenoid inflammation. SPECIMEN(S) SUBMITTED A - Right abdomen, skin shave biopsy (1) CLINICAL INFORMATION Differential diagnosis. ??Nevus versus acrochordon-7 mm flesh skin colored papule SPECIMEN PROCESSING A - Labeled/Fixative : Patient demographics, formalin. Quantity/Size: ??Single, 1.0 x 0.7 cm excised to a depth of 0.1 cm. Tissue Description: Pale-guthrie skin shave remarkable for a 0.7 x 0.5 cm guthrie-pink papule measuring 0.1 cm to the closest resection margin. Sections/Process ing: Inked, serially sectioned and entirely submitted in 2 cassettes as follows: ?A1: ??Opposing ends ?A2: ??Transverse cross-sections ??krd 12/29/2023 7:41 PM EDT [facility] SPECIMEN FROM SKIN / Unknown 12/20/2023 4:10 PM EDT 12/20/2023 4:10 PM EDT Jadiel Deluna MD PATHOLOGY/[place] [address] documented in this encounter Visit Diagnoses Diagnosis Neoplasm of unspecified behavior of bone, soft tissue, and skin Inflamed skin tag Unspecified hypertrophic and atrophic condition of skin Inflamed seborrheic keratosis Dermatofibroma Benign neoplasm of skin, site unspecified documented in this encounter Care Teams Web Services Architect Relationship Specialty Start Date End Date Balbina, Digna Casas APRN [address] [place] [address] PCP - General Internal Medicine 12/20/23 documented as of this encounter
--- OUTSIDE RECORDS SUMMARY | 2024-08-18 11:22 | XMS_ITS | Clinical Summary ---
[place] [address] Care Team Providers Care Novelty Dipper Name Role Phone Balbina, Digna Casas APRN Primary Care Provider [phone]- [phone] Allergies No known active allergies Medications No known medications Active Problems Problem Noted Date Diagnosed Date Dermatofibroma 11/18/2016 Nevus 11/18/2016 Social History Tobacco Use Types Packs/Day Years Used Date Smoking Tobacco: Former Sex and Gender Information Value Date Recorded Sex Assigned at Not on file Gender Identity Not on file Sexual Orientation Not on file Plan of Treatment Health Maintenance Due Date Last Done Comments CT Colonography 1969 Colonoscopy 1969 Colorectal Cancer Screening 1970 FIT DNA 1970 FIT 1970 Sigmoidoscopy (10 year) with FIT yearly 1970 Sigmoidoscopy 1970 HIV screen 1987 Hepatitis C Screening 1987 Lipid Screening 1987 Hepatitis B vaccine (0-59 yrs) (1) 1988 Tetanus/Diphtheria/Pertussis Vaccines (1 - Tdap) 05/23 Zoster vaccine (1 of 2) 2019 Covid-19 Vaccine (1 - 2023- season) 2024 Influenza (Flu) vaccine (1 o f 1 - Influenza standard series) 04/14/2024 Advance Directive 2024 Care Teams Novelty Dipper Relationship Specialty Start Date End Date Balbina, Digna Casas APRN [address] [place] [address] PCP - General Internal Medicine 12/20/23
--- OUTSIDE RECORDS SUMMARY | 2024-08-18 11:22 | XMS_ITS | Encounter Summary ---
Author Organization [facility] Address [address] [place] [address] Care Team Providers Care Manager Unit Name Role Phone Joe Mccain MD Primary Care Provider [phone] Encounter Details Date Type Department Care Team (Late st Contact Info) Description 01/29/2024 Lab Requisition [facility] Pathology & Laboratory Medicine - [facility] [address] [place] [address] Elliott Linton MD [address] [place] [phone] Encounter for screening for malignant neoplasm of colon Social History Tobacco Use Types Packs/Day Years [...] Priority Date/Time Associated Diagnosis Comments SURGICAL PATHOLOGY Today 01/29/2024 8:29 EDT Encounter for screening for malignant neoplasm of colon documented in this encounter Results * SURGICAL PATHOLOGY (01/29/2024 8:29 EDT) Note to Patient The following pathology results have been interpreted by your pathologist and may be available to you before your health provider has had the opportunity to review them. Please allow time for your provider to receive these results and explore management options, if applicable. 01/31/2024 9:35 EDT [facility] Final Diagnosis A. COLON, TRANSVERSE, POLYP, BIOPSY: - Tubular adenoma. 01/31/2024 9:35 EDT [facility] Attestation There was significant resident/fellow involvement in the diagnostic evaluation of this case. By the signature below, the attending physician certifies that they have personally conducted a gross and/or microscopic examination of the described specimens and rendered or confirmed the above diagnosis. 01/31/2024 9:35 T [facility] at 0935 Clinical History CRC screening 01/31/2024 9:35 EDT [facility] Gross Description A. Received in formalin labelled with proper patient identification (initials H, J) and transverse colon polyp are 3 guthrie irregular polypoid tissue fragments (0.2-0.3 cm in greatest dimension). Submitted entirely in A1. [facility] 01/29/2024 17:34 01/31/2024 9:35 EDT [facility] Resident/Tariq w: Gerard Adan DO 01/31/2024 9:35 T [facility] Performing Lab [facility] 01/31/2024 9:35 [facility] Scanned Images 01/31/2024 9:35 [facility] Tissue TRANSVERSE COLON STRUCTURE / Unknown 01/29/2024 8:29 EDT 01/29/2024 16:59 EDT us Elliott Linton MD PATHOLOGY ORDERABLES F inal Result [facility] [address] [place] [id number] documented in this encounter Visit Diagnoses Diagnosis Encounter for screening for malignant neoplasm of colon Special screening for malignant neoplasms, colon documented in this encounter Care Teams Manager Unit Relationship Specialty Start Date End Date Joe Mccain MD [address] [place] [address] PCP - General 08/08/13 documented as of this encounter
--- OUTSIDE RECORDS SUMMARY | 2024-08-18 11:22 | XMS_ITS | Encounter Summary ---
[place] [address] Care Team Providers Care Furs Salesperson Name Role Phone Malena Davidson MD Primary Care Provider [phone] Reason for Visit * Reason Comments Skin Check * Consultation (Routine) - Specialty Diagnoses / Procedures Referred By Contac t Referred To Contact Dermatology Diagnoses Dermatitis, unspecified Dermatitis Procedures dermtitis Malena Davidson MD [address] [place] [address] [facility] [address] [place] [address] Gio Kulkarni MD [address] [place] [address], [facility] [place] [place] [address] Referral ID Status Reason Start Date Expiration Date V isits Requested Visits Authorized [id number] 08/30/2016 08/30/2017 1 1 Encounter Details Date Type Department Care Team (Late st Contact Info) Description 11/18/2016 3:45 PM EDT Office Visit Dermatology at [address] [phone] Gio Kulkarni MD [address] [facility], [facility] [place] [address] Dermatofibroma; Nevus Social History Tobacco Use Types Packs/Day Years Used Date Smoking Tobacco: Former Sex and Gender Information Value Date Recorded Sex Assigned at Not on file Gender Identity Not on file Sexual Orientation Not on file documented as of this encounter Progress Notes * Gio Kulkarni MD - 11/18/2016 3:45 PM EDT PROBLEM: Skin lesions of concern. Tahir is a 46-year-old gentleman whose is concerned about some lesions on his right flank and on his right leg. They have been present for a number of years. They do not bleed, scab or crust. They are asymptomatic. Physical examination reveals a dermatofibroma and an erythematous papulonodule on the right anterior hoyt and on the posterior calf, he has 2 more atrophic-appearing dermatofibromas. On the right lateral flank, just below the plane of the nipple, he has a 4 mm nevus versus early seborrheic keratosis. A/P: Benign dermatofibroma/nevus/seborrheic keratosis. a. Patient reassured about benign lesions. b. No treatment necessary. c. Commented on his [employer] hat and watch and wallet. Return to clinic here p.r.n. CC: Malena Davidson MD documented in this encounter Plan of Treatment Not on file documented as of this encounter Visit Diagnoses Diagnosis Dermatofibroma Benign neoplasm of skin, site unspecified Nevus Benign neoplasm of skin, site unspecified documented in this encounter Care Teams Furs Salesperson Relationship Specialty Start Date End Date Malena Davidson MD [address] [place] [address] PCP - General Internal Medicine 11/18/16 09/20/22 documented as of this encounter
--- OUTSIDE RECORDS SUMMARY | 2024-08-18 11:22 | XMS_ITS | Encounter Summary ---
[place] [address] Care Team Providers Care Animal Nutritionist Name Role Phone BalbinaDigna APRN Primary Care Provider [phone] Encounter Details Date Type Department Care Team (Latest Contact Info) Description 12/20/2023 Travel Social History Tobacco Use Types Packs/Day Years Used Date Smoking Tobacco: Former Sex and Gender Information Value Date Recorded Sex Assigned at Not on file Gender Identity Not on file Sexual Orientation Not on file documented as of this encounter Plan of Treatment Not on file documented as of this encounter Visit Diagnoses Not on filedocumented in this encounter Care Teams Animal Nutritionist Relationship Specialty Start Date End Date BalbinaDigna APRN [address] [place] [address] PCP - General Internal Medicine 12/20/23 documented as of this encounter
--- OUTSIDE RECORDS SUMMARY | 2024-08-18 11:22 | XMS_ITS | Referral Summary ---
Author Organization [facility] Address [address] [place] [address] Care Team Providers Care Cheerleading Coach Name Role Phone oJe Mccain MD Primary Care Provider [phone] Social History Tobacco Use Types Packs/Day Years Used Date Smoking Tobacco: Never Assessed Sex and Gender Information Value Date Recorded Sex Assigned at Not on file Legal Sex Male 15:44 EST Gender Identity Not on file Sexual Orientation Not on file Plan of Treatment Not on file Insurance [facility] Care Teams Cheerleading Coach Relationship Specialty Start Date End Date Joe Mccain MD [address] [place] [address] [address] [place] [address] PCP - General 08/08/13
--- OUTSIDE RECORDS SUMMARY | 2024-08-18 11:22 | XMS_ITS | Clinical Summary ---
Author Organization [facility] Address [address] [place] [address] Care Team Providers Care Evp Sales Name Role Phone Joe Mccain MD Primary Care Provider [phone] Social History Tobacco Use Types Packs/Day Years Used Date Smoking Tobacco: Never Assessed Sex and Gender Information Value Date Recorded Sex Assigned at Not on file Legal Sex Male 15:44 EST Gender Identity Not on file Sexual Orientation Not on file Plan of Treatment Health Maintenance Due Date Last Done Comments Hepatitis C Screen 1970 Hepatitis B Vaccine (1 of 3 - 19+ 3-dose series) 05/23 COVID-19 Vaccine ( season) 2024 Insurance [facility] Care Teams Evp Sales Relationship Specialty Start Date End Date oJe Mccain MD [address] [place] [address] [address] [place] [address] PCP - General 08/08/13
--- OUTSIDE RECORDS SUMMARY | 2024-08-18 11:22 | XMS_ITS | Encounter Summary ---
Author Organization [facility] Address [address] [place] [id number] Care Team Providers Care Accounts Payable Analyst Name Role Phone Unknown, Provider Primary Care Provider Unava ilable Encounter Details Date Type Department Care Team (Latest Contact Info) Description 08/05/2013 14:35 EST - 08/05/2013 23:59 EST Hospital Encounter [address] [address] Unknown, ProviderMD Discharge Disposition: Home or Self Care Social History Tobacco Use Types Packs/Day Years Used Date Smoking Tobacco: Never Assessed Sex and Gender Information Value Date Recorded Sex Assigned at Not on file Legal Sex Male 15:44 EST Gender Identity Not on file Sexual Orientation Not on file documented as of this encounter Discharge Disposition Disposition Code Departure Means Destination Home or Self Custodial documented in this encounter Plan of Treatment Not on file documented as of this encounter Visit Diagnoses Not on filedocumented in this encounter Care Teams Accounts Payable Analyst Relationship Specialty Start Date End Date Unknown, ProviderMD PCP - General 08/05/13 08/07/13 documented as of this encounter
[2024-08-18] MEDS: methylPREDNISolone SUCC 125 MG VIAL IVP (11:25)
[2024-08-18] MEDS: ACETAMINOPHEN 1,000 MG/100 ML BAG 400 MG IVPB (11:25)
[2024-08-18] MEDS: Ketorolac 15 MG/ML VIAL IVP (11:25)
[2024-08-18] MEDS: Cyclobenzaprine 10 MG TAB PO (11:25)
[2024-08-18] MEDS: Lidocaine 5% Patch 1 PATCH TP ×2 (11:26→13:04)
[2024-08-18 11:35] LABS: ALT 61 U/L (16-63); AST 29 U/L (15-37); Albumin 3.9 g/dL (3.4-5.0); Alkaline Phosphatase 115 U/L (46-116); Anion Gap 5.7 mmol/L (3-11); BUN 13 mg/dL (7-18); Bilirubin, Total 0.31 mg/dL (0.2-1.0); CO2 28.3 mmol/L (21.0-32.0); CREATININE 1.1 mg/dL (0.70-1.30); Calcium 9.1 mg/dL (8.5-10.1); Chloride 102 mmol/L (98-107); Estimated GFR 79.28 (mL/min/1.73m2); Glucose 342 mg/dL (74-106); Potassium 4.4 mmol/L (3.5-5.1); Sodium 136 mmol/L (136-145); Total Protein 7.6 g/dL (6.4-8.2); Troponin I 4 ng/L (<or=76)
[2024-08-18 12:10] LABS: Troponin I < 4 ng/L (<or=76)
[2024-08-18] MEDS: Omnipaque 350 MG/ML 100 ML BTL IJ (12:21)
[2024-08-18] MEDS: Normal Saline - Diluent 50 ML VIAL IJ ×2 (12:22→12:23)
[2024-08-18] MEDS: Omnipaque 350 MG/ML 50 ML BTL 40 ML IJ (12:25)
--- NOTE | 2024-08-18 12:31 | DI.VRAD_ITS ---
PROCEDURE INFORMATION: Exam: CTA Neck With Contrast Exam date and time: 08/18/2024 12:04 PM Age: 54 years old Clinical indication: Pain; Other: Eval carotids and vertebral artery for dissection TECHNIQUE: Imaging protocol: Computed tomographic angiography of the neck with contrast. Exam focused on the cervical segments of the vasculature. 3D rendering (Not supervised by radiologist): MIP and/or 3D reconstructed images were created by the technologist. Contrast material: OMNIPAQUE 350; Contrast volume: 70 ml; Contrast route: INTRAVENOUS (IV); COMPARISON: No relevant prior studies available. FINDINGS: Right common carotid artery: No stenosis. No dissection or occlusion. Right internal carotid artery: No stenosis of the extracranial segment. No dissection or occlusion. Right external carotid artery: No occlusion or stenosis of the origin. Left common carotid artery: No stenosis. No dissection or occlusion. Left internal carotid artery: No stenosis of the extracranial segment. No dissection or occlusion. Left external carotid artery: No occlusion or stenosis of the origin. Right vertebral artery: No stenosis. No dissection or occlusion. Left vertebral artery: No stenosis. No dissection or occlusion. Paranasal sinuses: There are retention cysts or polyps in the bilateral maxillary sinuses. Soft tissues: Normal. No significant soft tissue swelling. Bones/joints: No acute fracture. IMPRESSION: No stenosis or occlusion . No dissection or aneurysm. REFERENCES: NASCET CRITERIA. The degree of stenosis in the cervical segment of the internal carotid artery is based on NASCET criteria. Normal is no stenosis. Mild is less than 50% stenosis. Moderate is 50-69% stenosis. Severe is 70% to 99% stenosis. Total occlusion is no detectable patent lumen. Dictated and Authenticated by: Dylan Recinos MD. Ordering:ANTONIO Jiang MD
--- NOTE | 2024-08-18 12:50 | DI.VRAD_ITS ---
PROCEDURE INFORMATION: Exam: CTA Chest With Contrast Exam date and time: 08/18/2024 12:09 PM Age: 54 years old Clinical indication: Injury or trauma; Other: Pain in right neck and right shoulder, rule out di TECHNIQUE: Imaging protocol: Computed tomographic angiography of the chest with contrast. Exam focused on the arteries. 3D rendering (Not supervised by radiologist): MIP and/or 3D reconstructed images were created by the technologist. Contrast material: OMNIPAQUE 350; Contrast volume: 70 ml; Contrast route: INTRAVENOUS (IV); COMPARISON: CT CAROTID NECK CTA 08/18/2024 12:04 PM FINDINGS: Pulmonary arteries: Normal. No pulmonary emboli. Aorta: Unremarkable. No aortic aneurysm. No aortic dissection. Lungs: Unremarkable. No consolidation. No masses. Pleural spaces: Unremarkable. No pneumothorax. No pleural effusion. Heart: Unremarkable. No cardiomegaly. No pericardial effusion. Lymph nodes: Unremarkable. No enlarged lymph nodes. Bones/joints: Unremarkable. No acute fracture. Soft tissues: Unremarkable. IMPRESSION: No acute findings. No aortic aneurysm or dissection. No pulmonary embolus. Dictated and Authenticated by: Jona Doss MD. Ordering:ANTONIO Jiang MD
--- NOTE | 2024-08-18 13:02 | ED.GENADUL_ITS ---
Discharge Plan Disposition Patient Disposition: Home Condition: Good Discharge Details Clinical Impression: Neck pain on right side Primary Care Provider: Digna Mortensen ED Provider: Apolinar Leon Home Meds and New Rx's Prescriptions: New prednisone 50 mg tablet 50 mg PO DAILY Qty: 5 0RF lidocaine [Lidoderm] 5 % adhesive patch,medicated 1 patch Topical Q24H Qty: 15 0RF gabapentin [Neurontin] 300 mg capsule 300 mg PO TID Qty: 90 0RF Rx Instructions: On the first day take 1 pill, on the second day take 1 pill twice daily, on the third day and for the remainder of the prescription take 1 pill 3 times a day. No Action losartan 50 mg tablet 50 mg PO DAILY Qty: 90 3RF dulaglutide 1.5 mg/0.5 mL pen injector 1.5 mg subcut QWEEK Qty: 2 2RF Discharge Instructions Instructions: Neck Pain ED Additional Instructions: At this time your CT imaging and laboratory workup showed no signs of significant heart problem, vascular complication, or other significant abnor mality. For the next week will try maximal medical therapy to help in the relief of what is suspected to be nerve irritation. Please take the gabapentin prednisone Lidoderm patches as prescribed. Please take Tylenol and Motrin as needed. Please continue to massage the right shoulder and use heat and ice as needed. Please apply the Voltaren gel to the shoulder and neck 3-4 times per day. If you still have persistent symptomatology even after this therapy you may require further imaging with potential MRI. If you notice any worsening of your symptoms, or any new symptoms such as vomiting, diarrhea, fever, chills, shortness of breath, chest pain, numbness, weakness, or fainting , please return immediately to the emergency department for reevaluation. Please follow up with your primary care provider as soon as possible for reassessment and reevaluation. As always, it was a pleasure participating in your medical care today. Referrals: Digna Mortensen NP [Primary Care Provider] - Discharge Data Discharge Date/Time-TO BE ENTERED AT DEPARTURE: 08/18/24 13:20 HPI General Date/Time Provider Initiated Documentation: 08/18/24 10:32 . HPI Narrative: 54-year-old male with a past medical history of diabetes, hypertension, who presents today for evaluation of right neck and shoulder pain. Patient states symptoms have been going on for the last week and a half. He describes the symptoms as a aching stabbing pain in the right neck radiating down to his right shoulder slightly down the arm. Is been gradually getting worse. Worse with movement and certain positions, improved with right sided sidebending of the neck and elevation of the shoulder. He has tried some of his 's gabapentin without improvement, he has taken Tylenol Motrin without improvement. He went to a chiropractor and also did not significantly improve the symptoms. He does use heat and ice and this will help momentarily but then the symptoms returned. He denies any chest pain or shortness of breath. He denies any headache. No family history of aneurysms or dissection. No history of Marfan syndrome or Scarlett-Danlos syndrome. He denies any tingling in his hands. He denies any vomiting or diarrhea. No fever or chills. No trauma to the area. No other complaints Related Data Home Medications ?Medication ?Instructions ?Recorded ?Confirmed losartan 50 mg tablet 50 mg PO DAILY #90 tabs 03/04/24 08/18/24 dulaglutide 1.5 mg/0.5 mL 1.5 mg (0.5 mL) subcut QWEEK #2 mL 08/01/24 08/18/24 subcutaneous pen injector gabapentin 300 mg capsule 300 mg PO TID #90 caps 08/18/24 (Neurontin) lidocaine 5 % topical patch 1 patch topical Q24H #15 ea 08/18/24 (Lidoderm) prednisone 50 mg tablet 50 mg PO DAILY #5 tabs 08/18/24 Previous Rx's ?Medication ?Instructions ?Recorded losartan 50 mg tablet 50 mg PO DAILY #90 tabs 03/04/24 dulaglutide 1.5 mg/0.5 mL 1.5 mg (0.5 mL) subcut QWEEK #2 mL 08/01/24 subcutaneous pen injector gabapentin 300 mg capsule 300 mg PO TID #90 caps 08/18/24 (Neurontin) lidocaine 5 % topical patch 1 patch topical Q24H #15 ea 08/18/24 (Lidoderm) prednisone 50 mg tablet 50 mg PO DAILY #5 tabs 08/18/24 Allergies Allergy/AdvReac Type Severity Reaction Status Date / Time No Known Allergies Allergy Verified 08/18/24 10:28 General Stated Complaint: Orthopedic RAISSA: 3 Exam Narrative Exam Narrative: 1.Const: Well-nourished, Well-developed, appearing stated age 2.Eyes: PERRL, no conjunctival injection, and symmetrical lids. 3.ENT: Atraumatic external nose and ears. Moist MM. Neck: Symmetric, trachea midline, No thyromegaly. 4.CVS: +S1/S2, Peripheral pulses 2+ and equal in all extremities. Brisk capillary refill in all extremities. No carotid or vertebral artery bruits. 5.RESP: Unlabored respiratory effort. Clear to auscultation bilaterally. No wheezes rales or rhonchi 6.GI: Soft, Nontender/Nondistended, No hepatosplenomegaly. No guarding or r ebound. 7.MSK: Normocephalic/Atraumatic, Extremities w/o deformity or ttp No cyanosis or clubbing, Normal movement of all extremities. No discernible spasm of the sternocleidomastoid, scalene, or right lateral neck musculature. No redness warmth or erythema of the shoulder or neck. No bulging. No pulsatile mass. Normal range of motion of the right shoulder without any pain or tenderness. 8.Skin: Warm, Dry. No rashes or lesions. 9.Neuro: batch unit treater II-XII grossly intact. Sensation grossly intact, no focal neurologic deficits. 10.Psych: (AAO) x3. Appropriate mood and affect Course Vital Signs Vital signs: Vital Signs Temperature 36.5 C 08/18/24 10:25 Pulse 86 08/18/24 10:25 Respiratory Rate 15 08/18/24 10:25 Blood Pressure 146/80 H 08/18/24 10:25 Pulse Oximetry 97 08/18/24 10:25 Temperature 36.5 C 08/18/24 10:25 Temperature Source Oral 08/18/24 10:25 Pulse 86 08/18/24 10:25 Respiratory Rate 15 08/18/24 10:25 Blood Pressure 146/80 H 08/18/24 10:25 Blood Pressure Position Sitting 08/18/24 10:25 Pulse Oximetry 97 08/18/24 10:25 Oxygen Delivery Method Room Air 08/18/24 10:25 Oxygen Flow Rate 0 08/18/24 10:25 Pain Level 10 08/18/24 11:15 Lab/Test Results Lab/Test Results: Laboratory Tests Range/Units 01/05/25 01/05/25 10:57 11:46 WBC (4.4-10.8) 10^3/uL 5.85 RBC (4.36-5.78) 10^6/uL 5.37 Hgb (13.5-17.5) g/dL 15.2 Hct (40.0-50.0) % 44.1 MCV (80-95) fL 82 MCH (27.0-33.0) pg 28.3 MCHC (32.0-36.0) % 34.5 RDW (11.8-14.1) % 12.3 Plt Count (130-400) 10^3/uL 288 MPV (8.0-11.0) fL 9.2 Immature Gran % % 0.3 Neutrophils % % 58.9 Lymphocytes % % 31.5 Monocytes % % 6.7 Eosinophils % % 1.7 Basophils % % 0.9 Nucleated RBC % (0.0-0.3) % 0.0 Absolute Neutrophils (1.2-6.7) 10^3/uL 3.45 Absolute Lymphocytes (1.2-3.4) 10^3/uL 1.84 Absolute Monocytes (0.1-0.8) 10^3/uL 0.39 Absolute Eosinophils (0.0-0.7) 10^3/uL 0.10 Absolute Basophils (0.0-0.2) 10^3/uL 0.05 Sodium (136-145) mmol/L 136 Potassium (3.5-5.1) mmol/L 4.4 Chloride (98-107) mmol/L 102 Carbon Dioxide (21.0-32.0) mmol/L 28.3 Anion Gap (3-11) mmol/L 5.7 BUN (7-18) mg/dL 13 Creatinine (0.70-1.30) mg/dL 1.1 Est GFR (CKD-EPI 2020) (mL/min/1.73m2) 79.28 Glucose (74-106) mg/dL 342 H Calcium (8.5-10.1) mg/dL 9.1 Total Bilirubin (0.2-1.0) mg/dL 0.31 AST (15-37) U/L 29 ALT (16-63) U/L 61 Alkaline Phosphatase (46-116) U/L 115 Troponin I (<or=76) ng/L 4 < 4 Total Protein (6.4-8.2) g/dL 7.6 Albumin (3.4-5.0) g/dL 3.9 Medical Decision Making 54-year-old male with a past medical history of diabetes, hypertension, who presents today for evaluation of right neck and shoulder pain. Patient states symptoms have been going on for the last week and a half. He describes the symptoms as a aching stabbing pain in the right neck radiating down to his right shoulder slightly down the arm. Is been gradually getting worse. Worse with movement and certain positions, improved with right sided sidebending of the neck and elevation of the shoulder. He has tried some of his 's gabapentin without improvement, he has taken Tylenol Motrin without improvement. He went to a chiropractor and also did not significantly improve the symptoms. He does use heat and ice and this will help momentarily but then the symptoms returned. He denies any chest pain or shortness of breath. He denies any headache. No family history of aneurysms or dissection. No history of Marfan syndrome or Scarlett-Danlos syndrome. He denies any tingling in his hands. He denies any vomiting or diarrhea. No fever or chills. No trauma to the area. No other complaints Exam demonstrates well-appearing male, normal pulses bilaterally, no vascular bruits in the neck, no evidence of muscle spasm. Differential includes thoracic outlet syndrome with impingement on the brachial plexus, peripheral nerve irritation, dissection of the carotid or vertebral arteries is on the differential but less likely. However with the patient's notable attempts to manage his symptomatology at home without any resolution I do feel that further workup is indicated. Will get CT CTA imaging of the chest and neck to evaluate for vascular abnormality, disc abnormality or bony abnormality. Will get basic labs, we will give a dose of steroids, Lidoderm patch, and muscle relaxant. Will monitor closely and reassess. [address] imaging per radiology demonstrates no acute process, no significant abnormality aside for dissection or aneurysm. Patient only has minimal improvement of his pain. No evidence of acute life-threatening etiology at this time. Will recommend maximal medical therapy for the next week, and if this fails to improve his symptomatology he may require further imaging workup including MRI. Will give a 5-day course of steroids, gabapentin, NSAIDs, and Lidoderm patches. Patient does have some muscle relaxants, and recommend use of this only if absolutely needed. Recommend continued heat and ice. Patient will follow-up with physical therapy on an outpatient basis as well as his chiropractor. Discussed red flags which return. I have extensively reviewed the treatment plan and discharge instructions with the patient. I have addressed all patient concerns at this time. The patient was made aware of what symptoms to monitor for that would warrant a return to the emergency department. Discussed the plan with the patient, they demonstrate verbal understanding and agreement with our assessment and plan at this time. The documentation in this chart was dictated using [employer] dictation software. Please excuse any dictation errors. FINDINGS: Right common carotid artery: No stenosis. No dissection or occlusion. Right internal carotid artery: No stenosis of the extracranial segment. No dissection or occlusion. Right external carotid artery: No occlusion or stenosis of the origin. Left common carotid artery: No stenosis. No dissection or occlusion. Left internal carotid artery: No stenosis of the extracranial segment. No dissection or occlusion. Left external carotid artery: No occlusion or stenosis of the origin. Right vertebral artery: No stenosis. No dissection or occlusion. Left vertebral artery: No stenosis. No dissection or occlusion. Paranasal sinuses: There are retention cysts or polyps in the bilateral maxillary sinuses. Soft tissues: Normal. No significant soft tissue swelling. Bones/joints: No acute fracture. IMPRESSION: No stenosis or occlusion . No dissection or aneurysm. REFERENCES: NASCET CRITERIA. The degree of stenosis in the cervical segment of the internal carotid artery is based on NASCET criteria. Normal is no stenosis. Mild is less than 50% stenosis. Moderate is 50- 69% stenosis. Severe is 70% to 99% stenosis. Total occlusion is no detectable patent lumen. Thank you for allowing us to participate in the care of your patient. Dictated and Authenticated by: Dylan Recinos DO 08/18/2024 12:31 PM Eastern Time ([place]) FINDINGS: Pulmonary arteries: Normal. No pulmonary emboli. Aorta: Unremarkable. No aortic aneurysm. No aortic dissection. Lungs: Unremarkable. No consolidation. No masses. Pleural spaces: Unremarkable. No pneumothorax. No pleural effusion. Heart: Unremarkable. No cardiomegaly. No pericardial effusion. Lymph nodes: Unremarkable. No enlarged lymph nodes. Bones/joints: Unremarkable. No acute fracture. Soft tissues: Unremarkable. IMPRESSION: No acute findings. No aortic aneurysm or dissection. No pulmonary embolus. Thank you for allowing us to participate in the care of your patient. Dictated and Authenticated by: Jona Doss MD 08/18/2024 12:49 PM Eastern Time ([place] & [place]) Quality:SDOH Health Related Social Needs: No Data to Display PFSH All Active Problems (Updated 08/18/24 @ 13:04 by Apolinar Leon DO) Neck pain on right side (Acute) Skin abnormalities (Acute) Hyperlipidemia (Acute) Hypnic jerks (Acute) Mild cognitive impairment (Acute) 01/02- seen by neuro; no focal deficits, believed to be r/t stress Hypertension (Chronic) Diabetes (Chronic) Erectile dysfunction (Acute) Anxiety (Chronic) Memory change (Acute) Medical History Tubular adenoma of colon (~01/2024) Premature beats PAC's per holter 08/20 Surgical History History of repair of ACL L arm Hx of colonoscopy (~01/2024) Family History Mother , age 67 Crohn's disease Father , age 67 Heart disease Multiple myeloma Sister No problems noted. Sister No problems noted. Sister No problems noted. Brother No problems noted. Brother No problems noted. Son No problems noted. Daughter No problems noted. Daughter No problems noted. Maternal Grandfather No problems noted. Paternal Grandfather No problems noted. Maternal Grandmother No problems noted. Paternal Grandmother No problems noted. Social History Smoking/Tobacco Use Status: Former Tobacco Use tobacco type: cigarettes and smokeless tobacco Quit Date: 08/14/97 Tobacco: How many years used: 20 Smokeless tobacco user: chewing tobacco Second Hand Exposure: Yes Smoking risk assessment performed?: Yes Alcohol Intake: former Drug use: Occasionally Substance use type: does not use Details: marijuana: drops Caregiver/Support person: No Household members: spouse Housing: house Communication Needs: None Do you need help understanding health information?: Never Pets and animals: Yes Pets and animals: cat(s) and dog(s) Sexually active: Yes Do you think of yourself as: straight/heterosexual Current gender identity: male What is your relationship status?: How often do you talk on the phone with friends or family?: three or more times per week How often do you get together with friends or relatives?: three or more times per week How often do you attend lutheran or temple services?: 4 or more times per year Do you belong to any clubs or organized social groups?: no Panel score (0-1 are the most socially isolated patients): 3 What type of physical activity do you participate in: regular exercise Duration: 45-60 minutes/day Frequency: 5-6 times per week Kathy/Restorationist: Other Special kathy needs: No Seatbelt use: always Helmet use: Yes Helmet use: always Drive intox or ride w/intox sales route driver helper: No Do you feel safe at home: Yes Do you feel safe in your relationship?: Yes Additional Social history: unable to assess privately
[2024-08-18] MEDS: Diclofenac 1% Gel 100 GM TUBE TP (13:17)
[2024-08-18 13:18] VITALS: BP 150/97; PULSE 76; RESP 18; O2SAT 95
== END 2024-08-18 13:20 | disposition home or self-care (01) ==
PROVIDERS: Emergency Provider Student in an Organized Health Care Education/Training Program; PCP Nurse Practitioner Family
DX: M54.2 Cervicalgia (principal); I10 Essential (primary) hypertension; E11.9 Type 2 diabetes mellitus without complications
CPT/HCPCS: 36415; 70498; 71275; 80053; 93005; 96365; 96375; 99285; 84484; 85025; 93010; 99284; J0131; J1885; J2919; J3490; Q9967

== ENCOUNTER 2024-09-26 03:13 | Outpatient (CLI) | payer BC, SELFPAY ==
[2024-09-26 13:13] LABS: Anion Gap 10.4 mmol/L (3-11); BUN 16 mg/dL (7-18); CO2 26.6 mmol/L (21.0-32.0); Calcium 9.5 mg/dL (8.5-10.1); Chloride 101 mmol/L (98-107); Cholesterol 296 mg/dL (<200); Estimated GFR 88.88 (mL/min/1.73m2); Glucose 163 mg/dL (74-106); HDL Cholesterol 36 mg/dL (40-60); Potassium 3.9 mmol/L (3.5-5.1); Sodium 138 mmol/L (136-145); Triglyceride 637 mg/dL (<150)
[2024-09-26 13:27] LABS: LDL CHOLESTEROL 170 mg/dL (<100)
== END 2024-09-26 03:14 | disposition home or self-care (01) ==
LOC: LBO 03:14
PROVIDERS: PCP Nurse Practitioner Family; Visit Provider Nurse Practitioner Family
DX: Z00.00 Encounter for general adult medical examination without abnormal findings (principal)
CPT/HCPCS: 36415; 80048; 80061; 83721